=== PATIENT | male | born 1960 | race Caucasian/White ===

== ENCOUNTER 2023-01-23 09:52 | Inpatient (IN) ==
[2023-01-23] MEDS: SODIUM CHLORIDE 0.9% 1,000 ML IV SCH ×2 (10:35→11:30)
[2023-01-23 10:37] LABS: Base Excess VBG -0.2 mEq/L; HCO3 VBG 24 mmol/L; Oxygen Saturation VBG 71.1 %; PCO2 VBG 37 mmHg (38-50); PO2 VBG 41 mmHg; pH VBG 7.42 (7.36-7.41)
[2023-01-23 10:39] LABS: Basophils # (auto) 0.04 K/uL (0.00-0.20); Basophils % (auto) 0.3 %; Eosinophils # (auto) 0.11 K/uL (0.00-0.50); Eosinophils % (auto) 0.7 %; Hematocrit (blood only) 38.5 % (42.0-52.0); Hemoglobin 12.6 g/dl (14.0-18.0); Immature Granulocytes # (auto) 0.07 K/uL (0.01-0.20); Immature Granulocytes % (auto) 0.5 %; Lymphocytes # (auto) 0.92 K/uL (1.20-3.40); Mean Corpuscular Hemoglobin 25.3 pg (25.0-34.0); Mean Corpuscular Hgb Conc 32.7 g/dL (32.0-36.0); Mean Corpuscular Volume 77.2 fL (80.0-100.0); Mean Platelet Volume 8.6 fL (9.4-12.4); Monocytes # (auto) 1.53 K/uL (0.11-0.59); Neutrophils # (auto) 12.67 K/uL (1.40-6.50); Neutrophils % (auto) 82.5 %; Platelet Count 483 K/uL (130-400); RDW Coefficient of Variation 14.8 % (11.5-14.5); RDW Standard Deviation 40.9 fL (36.4-46.3); Red Blood Count 4.99 M/uL (4.70-6.10); White Blood Count 15.34 K/ul (4.8-10.8)
--- NOTE | 2023-01-23 10:52 | Emergency Department Note ---
Impression & Plan Chest pain, Pleural effusion on left, Leukocytosis, Shortness of breath ED Provider Note HISTORY OF PRESENT ILLNESS: Patient is a 62-year-old male presenting with left-sided chest pain and shortness of breath. Patient reports that he has been having intermittent left- sided chest pain and shortness of breath with exertion for the last 3 to 4 weeks. He reports in the last week the symptoms have been more persistent and getting worse. He states he is unable to take more than a few steps before he gets a left-sided burning sensation and feels very short of breath. Reports he is unable to climb any stairs at his facility without becoming significantly winded. Denies any DVT or PE history. Denies any history of cardiac stents. He is not on any anticoagulation. Denies any notable fevers. Denies any cough. 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 Denies any recent sick contact exposures. Denies any abdominal pain, nausea or vomiting. ROS: as above PHYSICAL EXAM: Constitutional: Patient appears in no acute distress. HENT: Head: Normocephalic and atraumatic. Eyes: EOMI, PERRL Mouth/Throat: Mucous membranes moist. Neck: Trachea midline. Neck supple. Cardiovascular: Tachycardic with regular rhythm. No murmurs, rubs or gallops. Intact distal pulses. Pulmonary/Chest: Decreased breath sounds on the left. Abdominal: Abdomen soft, no tenderness, rebound or guarding. Musculoskeletal: No edema, tenderness or deformity noted. Skin: Warm and dry. No rash, erythema, pallor or cyanosis Psychiatric: Appropriate mood and affect for situation. Neurological: Alert and keenly responsive. CN II-XII grossly intact, moving all extremities equally and fully. MDM: - Vitals signs showed tachycardia. - History obtained via patient. Patient presents with left-sided chest pain and shortness of breath. Patient reportedly has been having intermittent chest pain or shortness of breath with exertion for the last 3 to 4 weeks. He states the last week the symptoms have been more persistent getting worse. He is unable to take more than a few steps at a time before he becomes very short of breath. Denies any DVT or PE history. Denies any recent sick contact exposures - Chronic conditions affecting care: HTN; HLD; mast cell disorder - Differential diagnoses include, but are not limited to: Acute coronary syndrome; pulmonary embolism; dissection; tension pneumothorax; esophageal rupture; pneumonia - Order placed for continuous cardiac monitoring. At this time, monitor showed rate of 94 bpm with normal sinus rhythm, per my interpretation. - External medical records reviewed. - EKG reviewed by myself showed normal sinus rhythm. Rate tachycardic at 107 bpm. QTc 472. No acute ischemic changes. - Laboratory workup interpreted by myself showed leukocytosis (WBC 15.34) with left shift; thrombocytosis (plt 483); elevated dimer (2430); elevated lactate (2.3); normal procalcitonin - Patient given 2.5L NS in ER. His sepsis fluid resuscitation based on ideal body weight is 2018 mL. - CXR shows complete opacification of left lung, per my interpretation - CT PE large left pleural effusion with underlying atelectasis. Malignant effusion cannot be excluded. Pulmonary nodules also noted. - Viral biofire negative - Blood cultures obtained - Patient given IV vancomycin and zosyn for antibiotic coverage. - Discussion was had with social worker masters about patient's case and need for admission - Hospitalist consulted for admission - Patient admitted to [facility] for further evaluation and management. ASSESSMENT AND PLAN: Diagnosis: chest pain; shortness of breath; large left pleural effusion; leukocytosis Plan: admit Past Med/Surg History Social History Smoking Status: Former smoker Tobacco Type: Cigarettes Preferred Language: Bahamian Feels Safe at Home: Yes Allergies Allergies Allergy/AdvReac Type Severity Reaction Status Date / Time No Known Allergies Allergy Unverified 01/23/23 13:41 Home Meds Home Medications Medication Instructions Recorded Confirmed alendronate 70 mg tablet 70 mg PO .WEEKLY 01/23/23 01/23/23 ergocalciferol (vitamin D2) 1,250 1,250 mcg PO MOWEFR 01/23/23 01/23/23 mcg (50,000 unit) capsule (Vitamin D2) famotidine 20 mg tablet 20 mg PO DAILY PRN Acid Reflux 01/23/23 01/23/23 hydroxyzine HCl 50 mg tablet 100 mg PO TID 01/23/23 01/23/23 lorazepam 1 mg tablet (Ativan) 1 mg PO DAILY 01/23/23 01/23/23 ondansetron HCl 4 mg tablet 4 mg PO QID PRN Nausea 01/23/23 01/23/23 Results & Data (ED) Vital Signs Vital Signs - 24 hr 01/23/23 09:56 01/23/23 10:11 01/23/23 10:23 Temperature 36.3 C L Temperature Source Temporal Artery Scan Pulse Rate 121 H 110 H Respiratory Rate 18 Blood Pressure 131/86 Blood Pressure Mean 101 Pulse Oximetry 94 94 Oxygen Delivery Method Room Air Room Air Sepsis Recent Fever Within 48 Hours No Sepsis New/Unexplained Change in Mental Status N/A Sepsis Action Taken by Nursing No Action Required 01/23/23 10:23 01/23/23 12:00 01/23/23 12:31 Temperature Temperature Source Pulse Rate 108 H 94 H 94 H Respiratory Rate 22 21 20 Blood Pressure 126/93 124/95 169/95 H Blood Pressure Mean 104 104 119 Pulse Oximetry 93 94 93 Oxygen Delivery Method Room Air Room Air Room Air Sepsis Recent Fever Within 48 Hours Sepsis New/Unexplained Change in Mental Status Sepsis Action Taken by Nursing 01/23/23 13:00 Temperature Temperature Source Pulse Rate 94 H Respiratory Rate 24 Blood Pressure 143/96 H Blood Pressure Mean 111 Pulse Oximetry 95 Oxygen Delivery Method Room Air Sepsis Recent Fever Within 48 Hours Sepsis New/Unexplained Change in Mental Status Sepsis Action Taken by Nursing Laboratory Data 01/23/23 10:14 01/23/23 10:14 Lab Results 01/23/23 01/23/23 01/23/23 Range/Units 10:14 10:22 12:10 WBC 15.34 H (4.8-10.8) K/ul RBC 4.99 (4.70-6.10) M/uL Hgb 12.6 L (14.0-18.0) g/dl Hct 38.5 L (42.0-52.0) % MCV 77.2 L (80.0-100.0) fL MCH 25.3 (25.0-34.0) pg MCHC 32.7 (32.0-36.0) g/dL RDW Std Deviation 40.9 (36.4-46.3) fL RDW Coeff of Macario 14.8 H (11.5-14.5) % Plt Count 483 H (130-400) K/uL MPV 8.6 L (9.4-12.4) fL Immature Gran % (Auto) 0.5 % Neut % (Auto) 82.5 % Lymph % (Auto) 6.0 % Cowley % (Auto) 10.0 % Eos % (Auto) 0.7 % Baso % (Auto) 0.3 % Neut # (Auto) 12.67 H (1.40-6.50) K/uL Lymph # (Auto) 0.92 L (1.20-3.40) K/uL Cowley # (Auto) 1.53 H (0.11-0.59) K/uL Eos # (Auto) 0.11 (0.00-0.50) K/uL Baso # (Auto) 0.04 (0.00-0.20) K/uL Immature Gran # (Auto) 0.07 (0.01-0.20) K/uL D-Dimer 2430 H* (0-500) ug/L FEU VBG pH 7.42 H (7.36-7.41) VBG pCO2 37 L (38-50) mmHg VBG pO2 41 mmHg VBG HCO3 24 mmol/L VBG O2 Saturation 71.1 % VBG Base Excess -0.2 mEq/L Sodium 134 L (136-145) mmol/L Potassium 3.8 (3.5-5.1) mmol/L Chloride 102 (98-107) mmol/L Carbon Dioxide 23 (21-32) mmol/L Anion Gap 9 (3-11) BUN 16 (6-23) mg/dl Creatinine 1.02 (0.6-1.4) mg/dl Est Cr Clr Drug Dosing 76.1 ml/min Est GFR ( Amer) 89.6 ml/min Est GFR (Non-Af Amer) 77.3 ml/min BUN/Creatinine Ratio 15.7 (10-20) Glucose 144 H (70-99(Fasting)) mg/dl Lactate 2.3 H* 1.5 (0.4-2.0) mmol/L Calcium 8.5 L (8.6-10.3) mg/dl Magnesium 1.9 (1.7-2.4) mg/dl Total Bilirubin 0.7 (0.2-1.0) mg/dl Direct Bilirubin 0.2 (0-0.2) mg/dl AST 17 (13-39) U/L ALT 17 (7-52) U/L Alkaline Phosphatase 62 (34-104) U/L Troponin I High Sens 2.5 (0-20) pg/ml Total Protein 7.5 (6.0-8.3) gm/dl Albumin 3.3 L (3.4-5.0) gm/dl Procalcitonin 0.16 (0-0.5) ng/ml Adenovirus (PCR) Not Detected (NotDetected) B. pertussis DNA (PCR) Not Detected (NotDetected) B.parapertussis DNA PCR Not Detected (NotDetected) C. pneumoniae DNA (PCR) Not Detected (NotDetected) Coronavirus OC43 (PCR) Not Detected (NotDetected) Coronavirus HKU1 (PCR) Not Detected (NotDetected) Coronavirus 229E (PCR) Not Detected (NotDetected) SARS-CoV-2 (PCR) Not Detected (NotDetected) Coronavirus NL63 (PCR) Not Detected (NotDetected) Human Metapneumovir PCR Not Detected (NotDetected) Influenza Type A (PCR) Not Detected (NotDetected) Influenza Type B (PCR) Not Detected (NotDetected) M. pneumoniae (PCR) Not Detected (NotDetected) Parainfluenza 1 (PCR) Not Detected (NotDetected) Parainfluenza 2 (PCR) Not Detected (NotDetected) Parainfluenza 3 (PCR) Not Detected (NotDetected) Parainfluenza 4 (PCR) Not Detected (NotDetected) RSV (PCR) Not Detected (NotDetected) Entero/Rhino (PCR) Not Detected (NotDetected) Administered Medications Discontinued Medications Albuterol (Albut/Ipratrop 3mg/0.5mg Neb 3 Ml Vial) 3 ml NEB NOW STA; Protocol Stop: 01/23/23 13:15 Last Admin: 01/23/23 13:20 Dose: 3 ml Documented By: NANCY Sodium Chloride (Nss) 1,000 mls @ 999 mls/hr IV .Q1H1M DOREEN Stop: 01/23/23 12:15 Last Infusion: 01/23/23 12:39 Dose: Infused Documented By: Admin: 01/23/23 11:30 Dose: 999 mls/hr Documented By: Infusion: 01/23/23 11:30 Dose: Infused Documented By: Admin: 01/23/23 10:35 Dose: 999 mls/hr Documented By: ION Vancomycin HCl 2,000 mg/ (Sodium Chloride) 540 mls @ 200 mls/hr IV NOW ONE Stop: 01/23/23 13:58 Last Admin: 01/23/23 12:33 Dose: 200 mls/hr Documented By: ION Piperacillin Sod/Tazobactam Sod (Zosyn) 4.5 gm in 100 mls @ 200 mls/hr IV NOW ONE Stop: 01/23/23 11:46 Last Infusion: 01/23/23 12:34 Dose: Infused Documented By: Admin: 01/23/23 11:30 Dose: 200 mls/hr Documented By: ION Ioversol (Optiray 320 125ml) 114 ml IV ONCE ONE Stop: 01/23/23 12:28 Last Admin: 01/23/23 12:27 Dose: 114 ml Documented By: MARIBETH Imaging Data Radiologist's Impression: Chest X-Ray 01/23/23 10:04 XR chest 1V portable CLINICAL HISTORY: Sepsis TECHNIQUE: Single frontal radiograph of the chest was obtained. Comparison: None available at the time of this dictation. FINDINGS: No lines and tubes are seen. The cardiomediastinal silhouette is obscured. Left hemithorax is opacified. There is likely a large left pleural effusion. IMPRESSION: Left hemithorax opacification may reflect atelectasis, pneumonia, and/or aspiration. Underlying pleural effusion is likely. ACT 112: Negative or not required by law. Electronically signed by: Anand Smith M.D. 01/23/2023 11:16 AM Chest CTA 01/23/23 11:17 CT angio chest PE protocol CLINICAL HISTORY: PE TECHNIQUE: Multidetector row helical CT of the chest was performed with angiographic protocol. Coronal and sagittal reformations were obtained. Coronal and sagittal MIPS were obtained from the axial data set and were submitted for review. Automated dose lowering techniques and/or adjustment according to patient size were utilized for this exam. CT DOSE: 977.81 mGy.cm Comparison: Comparison is made to chest radiograph 01/23/2023 FINDINGS: Lungs and pleura: Large left pleural effusion is seen with associated atelectasis. There is a 3 mm nodule in the right lower lobe (image 69 of series 4). There is a 6 mm nodule in the right lower lobe (image 109). Heart and pericardium: Heart size is normal. No pericardial effusion. Mild rightward mediastinal shift is seen. Vessels: No evidence of pulmonary embolism. Mediastinum and jessica: Multiple enlarged mediastinal lymph nodes measure up to 13 mm. Chest wall and lower neck: Unremarkable. Abdomen: Unremarkable. Bones: Unremarkable. IMPRESSION: 1. Large left pleural effusion is seen with underlying atelectasis. Malignant effusion cannot be excluded. 2. Pulmonary nodules measuring up to 6 mm. Attention on follow-up is recommended. ACT 112: Negative or not required by law. Electronically signed by: Anand Smith M.D. 01/23/2023 12:47 PM Discharge Plan Visit Data Chief Complaint: Shortness of Breath/Dyspnea Stated Complaint: SOB ED Provider: Hiwot Pizano Discharge Problem: Chest pain, Pleural effusion on left, Leukocytosis, Shortness of breath Forms Stand Alone Forms: [facility] Prescriptions Prescriptions: No Action ondansetron HCl 4 mg Tablet 4 mg PO QID PRN (Reason: Nausea) alendronate 70 mg Tablet 70 mg PO .WEEKLY Rx Instructions: Take q friday hydroxyzine HCl 50 mg Tablet 100 mg PO TID famotidine 20 mg Tablet 20 mg PO DAILY PRN (Reason: Acid Reflux) ergocalciferol (vitamin D2) [Vitamin D2] 1,250 mcg (50,000 unit) Capsule 1,250 mcg PO MOWE Rx Instructions: Stop on 02/02/2023 lorazepam [Ativan] 1 mg Tablet 1 mg PO DAILY Referrals Referrals: James ANAND [Primary Care Provider] -
[2023-01-23 10:56] LABS: Albumin Level 3.3 gm/dl (3.4-5.0); BUN Creatinine Ratio 15.7 (10-20); Bilirubin Direct 0.2 mg/dl (0-0.2); Bilirubin,Total 0.7 mg/dl (0.2-1.0); Calcium 8.5 mg/dl (8.6-10.3); Creatinine Clr Calc Pharmacy 76.1 ml/min; Est GFR (African American) 89.6 ml/min; Est GFR (Non-African American) 77.3 ml/min; Magnesium 1.9 mg/dl (1.7-2.4); Potassium 3.8 mmol/L (3.5-5.1); Total Protein 7.5 gm/dl (6.0-8.3)
[2023-01-23 11:03] LABS: Troponin I High Sensitivity 2.5 pg/ml (0-20)
[2023-01-23 11:15] LABS: D Dimer 2430 ug/L FEU (0-500)
[2023-01-23] MEDS ORDERED: VANCOMYCIN HCL 2,000 MG in SODIUM CHLORIDE 0.9% 500 ML IV ONE (11:17)
[2023-01-23] MEDS ORDERED: SODIUM CHLORIDE 0.9% 500 ML IV ONE (11:17)
[2023-01-23] MEDS ORDERED: VANCOMYCIN CONSULT ACTIVE PRN (11:17)
[2023-01-23] MEDS ORDERED: PIPERACILLIN/TAZOBACTAM 4.5 GM/100 ML BAG IV ONE (11:17)
--- NOTE | 2023-01-23 11:17 | XRay Report ---
XR chest 1V portable CLINICAL HISTORY: Sepsis TECHNIQUE: Single frontal radiograph of the chest was obtained. Comparison: None available at the time of this dictation. FINDINGS: No lines and tubes are seen. The cardiomediastinal silhouette is obscured. Left hemithorax is opacifi ed. There is likely a large left pleural effusion. IMPRESSION: Left hemithorax opacification may reflect atelectasis, pneumonia, and/or aspiration. Underlying pleur al effusion is likely. ACT 112: Negative or not required by law. Electronically signed by: Anand Smith M.D. 01/23/2023 11:16 AM
[2023-01-23 11:36] LABS: Adenovirus PCR Not Detected (NotDetected); Bordetella parapertussis PCR Not Detected (NotDetected); Bordetella pertussis PCR Not Detected (NotDetected); Chlamydia pneumoniae PCR Not Detected (NotDetected); Coronavirus 229E PCR Not Detected (NotDetected); Coronavirus CoV-2 (COVID19)PCR Not Detected (NotDetected); Coronavirus HKU1 PCR Not Detected (NotDetected); Coronavirus NL63 PCR Not Detected (NotDetected); Coronavirus OC43PCR Not Detected (NotDetected); Human Metapneumovirus PCR Not Detected (NotDetected); Influenza A PCR Not Detected (NotDetected); Influenza B PCR Not Detected (NotDetected); Mycoplasma pneumoniae PCR Not Detected (NotDetected); Parainfluenza Virus 1 PCR Not Detected (NotDetected); Parainfluenza Virus 2 PCR Not Detected (NotDetected); Parainfluenza Virus 3 PCR Not Detected (NotDetected); Parainfluenza Virus 4 PCR Not Detected (NotDetected); Respiratory Syncytial VirusPCR Not Detected (NotDetected); Rhinovirus/Enterovirus PCR Not Detected (NotDetected)
[2023-01-23] MEDS ORDERED: OPTIRAY 320 125ml IV ONE (12:27)
--- NOTE | 2023-01-23 12:48 | CT Scan Report ---
CT angio chest PE protocol CLINICAL HISTORY: PE TECHNIQUE: Multidetector row helical CT of the chest was performed with angiographic protocol. Carpenter l and sagittal reformations were obtained. Coronal and sagittal MIPS were obtained from the axial gideon a set and were submitted for review. Automated dose lowering techniques and/or adjustment according to patient size were utilized for this exam. CT DOSE: 977.81 mGy.cm Comparison: Comparison is made to chest radiograph 01/23/2023 FINDINGS: Lungs and pleura: Large left pleural effusion is seen with associated atelectasis. There is a 3 mm no dule in the right lower lobe (image 69 of series 4). There is a 6 mm nodule in the right lower lobe ( image 109). Heart and pericardium: Heart size is normal. No pericardial effusion. Mild rightward mediastinal shif t is seen. Vessels: No evidence of pulmonary embolism. Mediastinum and jessica: Multiple enlarged mediastinal lymph nodes measure up to 13 mm. Chest wall and lower neck: Unremarkable. Abdomen: Unremarkable. Bones: Unremarkable. IMPRESSION: 1. Large left pleural effusion is seen with underlying atelectasis. Malignant effusion cannot be exc luded. 2. Pulmonary nodules measuring up to 6 mm. Attention on follow-up is recommended. ACT 112: Negative or not required by law. Electronically signed by: Anand Smith M.D. 01/23/2023 12:47 PM
[2023-01-23] MEDS ORDERED: ALBUT/IPRATROP 3MG/0.5MG NEB 3 ML VIAL NEB STA (13:14)
--- NOTE | 2023-01-23 14:19 | History & Physical Report ---
Date of Service January 23, 2023 Assessment & Plan (1) Pleural effusion on left: Plan: Shortness of breath due to left pleural effusion, suspect exudate Left pleural effusion. N mediastinal lymphadenopathy is noted. 3 mm right lower lobe nodule, 6 mm right lower lobe nodule. Suspect malignant effusion, patient does have a leukocytosis and acutely worsened symptoms and is covered for pneumonia with effusion. Received Zosyn/Vanco in the ER, continued on Zosyn. If MRSA nare is positive will transition to cefepime/vanc Pulmonology consulted for thoracentesis. Additional recommendations based on fluid analysis No history of heart failure exudative effusions (2) Shortness of breath: (3) Leukocytosis: (4) Systemic mastocytosis: Plan: Systemic Mastocysosis - Follows with [facility]. Patient reports he did have a bone marrow biopsy which confirmed systemic mastocytosis - Was placed on Midostaurin x3 weeks last dose was 6 weeks ago do to getting sick, nauseus, feeling poor. Was not recommended for any other immunotherapy. Will attempt to obtain biopsy results from [facility] system No acute change in management at time of admission Plan Pharmacoprophylaxis held pending Christopher noel. Lovenox 40mg SQ daily after. CODE STATUS: DNR/DNI History of Present Illness Primary Care Provider: KIKA Ramirez Grabiel is a 62-year-old male with a past medical history of mast cell disease not on active treatment who presents with left-sided chest pain and shortness of breath with exertion for approximately 1 month which have persisted and gradually worsened. Feels very short of breath after minimal exertion which limits his ability to ambulate. He has no history of cardiac disease, no history of heart failure, no history of DVT/PE. Denies fever/chills/cough Grabiel reports that he is a long-term inmate who had been generally well until about 1 month ago when he had progressive shortness of breath which has worsened and limited his ability to walk or go up stairs. He reports he has a generally dry cough and had not had a cough prior. He does feel feverish intermittently and has had a feeling of night sweats. He does not feel he has a fever currently. Denies chest pressure/chest pain but does feel some discomfort on deep inspiration into his left chest/back. Reports history of systemic mastocytosis and a family history of breast cancer/cervical cancer/bone cancer/"tumor behind the ear "but does not know if this was a CPA angle tumor just that his father and nephew of the same brain tumor. No diarrhea since stopping immunothearpy. No rectal pain. no abdominal pain Decreased appetite, loss of taste due to immunotherapy. Denies vomiting/ No history of bleeding problems Former smoker, in remission 25 years. Prior 1ppd x25 years. No vape, snuff, chew No etoh No heart history, denies CAD/heart failure/fluid retention/angina Pt reports family history of breast cancer, cervical cancer and some type of cancer in her bones, at age 57. Father at age 68 from a 'tumor behind his ear.' NKDA DNR/DNI. Confirmed with patient at bedside. Allergies Allergy/AdvReac Type Severity Reaction Status Date / Time No Known Allergies Allergy Unverified 01/23/23 13:41 Home Medications Medication Instructions Recorded Confirmed Type alendronate 70 mg tablet 70 mg PO .WEEKLY 01/23/23 01/23/23 History ergocalciferol (vitamin D2) 1,250 1,250 mcg PO MOWEFR 01/23/23 01/23/23 History mcg (50,000 unit) capsule (Vitamin D2) famotidine 20 mg tablet 20 mg PO DAILY PRN Acid Reflux 01/23/23 01/23/23 History hydroxyzine HCl 50 mg tablet 100 mg PO TID 01/23/23 01/23/23 History lorazepam 1 mg tablet (Ativan) 1 mg PO DAILY 01/23/23 01/23/23 History ondansetron HCl 4 mg tablet 4 mg PO QID PRN Nausea 01/23/23 01/23/23 History Past Med/Surg History Medical History Systemic mastocytosis Social History Smoking Status: Former smoker Tobacco Type: Cigarettes Preferred Language: Maldivian Feels Safe at Home: Yes Physical Exam Physical Exam: General: A&Ox3. NAD. Cooperative. HEENT: Atraumatic, normocephalic. Pulm: Minimal reading breath sounds in left lung. Right lung clear without wheezing. symmetrical chest rise. No increased work of breathing. No respiratory distress. Cardiac: RRR, -mrg. Radial pulses intact and symmetrical. Abdominal: Nontender, nondistended, soft. BS present. Results & Data Results & Data Vital Signs (Past 12 Hours) Vital Signs Temp Pulse Resp BP Pulse Ox O2 Del Method 01/23/23 13:00 94 H 24 143/96 H 95 Room Air 01/23/23 12:31 94 H 20 169/95 H 93 Room Air 01/23/23 12:00 94 H 21 124/95 94 Room Air 01/23/23 10:23 108 H 22 126/93 93 Room Air 01/23/23 10:23 94 Room Air 01/23/23 10:11 110 H 01/23/23 09:56 36.3 C L 121 H 18 131/86 94 Room Air PG Care Time/CCT Total # of Minutes Spent Total Time Spent with Patient: Total time spent is greater than 50% in coordination of care (as documented) at patient's floor/unit and/or counseling patient: Coding Level of Care Code 93215 INT INP/OBS CARE 3/75MIN Diagnoses Pleural effusion on left J90 Shortness of breath R06.02 Leukocytosis D72.829 Systemic mastocytosis D47.02
--- NOTE | 2023-01-23 14:29 | Electrocardiogram Report ---
Test Reason : Blood Pressure : / mmHG Vent. Rate : 107 BPM Atrial Rate : 107 BPM P-R Int : 148 ms QRS Dur : 084 ms QT Int : 354 ms P-R-T Axes : 049 018 020 degrees QTc Int : 472 ms Sinus tachycardia Otherwise normal ECG No previous ECGs available Confirmed by Grabiel Leung ([id number]) on 01/23/2023 2:29:20 PM Referred By: REFERRED SELF Confirmed By:Grabiel Leung
--- NOTE | 2023-01-23 14:58 | Pulmonary Consultation ---
Date of Consultation January 23, 2023 Assessment & Plan (1) Shortness of breath: (2) Pleural effusion on left: Plan 62-year-old male with a past medical history of mastocytosis and tobacco abuse presenting to the ER due to severe shortness of breath. Patient found to have massive left pleural effusion with possible underlying mass. Consent obtained from the patient for pigtail catheter. Patient was agreeable and procedure was performed. Patient received vancomycin and Zosyn in the ER. Agree with empiric antibiotics at this time. I placed a left pigtail catheter 01/23/2023 and this fluid will be sent for cytology, cultures and cell counts. Malignancy remains very high in the differential. Repeat chest x-rays pending. History of Present Illness Reason for Consultation: Massive left pleural effusion History of Present Illness 62-year-old male with past medical history of mast cell disease who presented to the hospital due to increasing shortness of breath over the past month. He has been very short of breath with exertion. He also endorses an occasional cough. He feels his cough is worse with trying cold weather. Weight has remained s table. Chest CTA completed 01/23/2023 revealed a large left pleural effusion with subcentimeter nodules noted in the right lower lobe. Enlarged mediastinal lymph nodes were noted as well. Patient quit smoking 25 years ago. He smoked roughly 1 pack a day for 25 years. His family history is pertinent for breast cancer, cervical cancer and some form of bone cancer. Allergies Allergy/AdvReac Type Severity Reaction Status Date / Time No Known Allergies Allergy Unverified 01/23/23 13:41 Home Medications Medication Instructions Recorded Confirmed Type alendronate 70 mg tablet 70 mg PO .WEEKLY 01/23/23 01/23/23 History ergocalciferol (vitamin D2) 1,250 1,250 mcg PO MOWEFR 01/23/23 01/23/23 History mcg (50,000 unit) capsule (Vitamin D2) famotidine 20 mg tablet 20 mg PO DAILY PRN Acid Reflux 01/23/23 01/23/23 History hydroxyzine HCl 50 mg tablet 100 mg PO TID 01/23/23 01/23/23 History lorazepam 1 mg tablet (Ativan) 1 mg PO DAILY 01/23/23 01/23/23 History ondansetron HCl 4 mg tablet 4 mg PO QID PRN Nausea 01/23/23 01/23/23 History Patient History Medical History Systemic mastocytosis Social History Smoking Status: Former smoker Tobacco Type: Cigarettes Preferred Language: Lao Feels Safe at Home: Yes Review of Systems Review of Systems: All systems reviewed & are unremarkable except as noted in HPI & below Physical Exam Physical Exam: Constitutional: Patient appears to be of their stated age. Patient is in no apparent distress. Patient is well-developed. Eyes: Pupils are equal round and reactive to light. Conjunctivae are normal. Anicteric sclera. Ears nose, mouth and throat: Mallampati class 2. Normal posterior oropharynx. Uvula is midline. Neck: Trachea is midline. Visual inspection is normal. Respiratory: Diminished lung sounds on the left. Mild crackles. Mildly increased work of breathing. Cardiovascular: Regular rate and rhythm. No murmurs. No edema. Gastrointestinal: Normal bowel sounds, soft, nontender and nondistended. No hepatosplenomegaly noted. Musculoskeletal: No cyanosis. Patient is able to move all extremities. Strength is 5 out of 5 in the upper and lower extremities. Skin: No rashes, warm dry and intact. Neurologic: No obvious focal neurological deficits seen. Psychiatric: Alert and oriented x3 with a euthymic affect. Results & Data Results & Data Vital Signs (Past 12 Hours) Vital Signs Temp Pulse Resp BP Pulse Ox O2 Del Method 01/23/23 14:10 94 H 01/23/23 14:00 94 H 22 150/109 H 94 Room Air 01/23/23 13:00 94 H 24 143/96 H 95 Room Air 01/23/23 12:31 94 H 20 169/95 H 93 Room Air 01/23/23 12:00 94 H 21 124/95 94 Room Air 01/23/23 10:23 108 H 22 126/93 93 Room Air 01/23/23 10:23 94 Room Air 01/23/23 10:11 110 H 01/23/23 09:56 36.3 C L 121 H 18 131/86 94 Room Air PG Care Time/CCT Total # of Minutes Spent Total Time Spent with Patient: Total time spent is greater than 50% in coordination of care (as documented) at patient's floor/unit and/or counseling patient: Coding Level of Care Code 14362 IN/OBS CONSULT LVL 4,60M Diagnoses Shortness of breath R06.02 Pleural effusion on left J90
[2023-01-23] MEDS ORDERED: PLASMA-LYTE A 1,000 ML IV SCH (15:59)
--- NOTE | 2023-01-23 16:01 | Procedure Note ---
Procedure Note Date of Service January 23, 2023 Note Left PIGTAIL CATHETER PLACEMENT NOTE: Procedure: Pigtail Catheter Chest Tube Placement Indication: Massive left pleural effusion Anesthesia: 8 mL lidocaine 1% Written consent was obtained and placed on the chart. Timeout was done prior to the procedure. Prior to procedure, chest x-ray films were reviewed by myself and demonstrated a massive left pleural effusion. A time-out was completed verifying correct patien t, procedure, site, positioning, and implant(s) or special equipment if applicable. Utilizing bedside ultrasound, chest wall was evaluated for location for optimal chest tube placement. Location between the 7 and eighth ribs were marked on the skin using gentle pressure. The left sided chest wall was prepped with chlorhexidine and draped in the typical sterile fashion. 8 mL of 1% Lidocaine without epinephrine was used to anesthetize the skin down to the dorsal surface of the 7 rib. Keri-colored fluid return confirmed entry into the pleural space. Lidocaine was injected into the pleural space for increased anesthetization. Introducer needle on syringe was inserted in perpendicular fashion taking care to ride just above the dorsal surface of the 7 rib. Entry into the pleural space was heralded by 7 return into the syringe while under gentle aspiration. Guide wire was advanced into the pleural space without resistance and the introducer needle was subsequently removed. Scalpel was used to make small incision of the superficial tissue, parallel to the direction of the rib anatomy. Dilator was advanced uneventfully over the guide wire into the pleural space. 14 Upper Sorbian Pigtail Catheter was inserted into the pleural space. Inner introducer and guide wire were removed. Drain was immediately connected to pre-prepared PASCUAL pleur-evac system. Pigtail was sutured securely in place and sterile dressing was applied. Chest tube was placed to waterseal.. Patient tolerated procedure well. Blood Loss: Minimal Complications: None Postprocedure chest x-ray ordered and is pending. Coding CPT Codes Pulmonary/Thoracic - Pulmonary and Thoracic: 42349 Tube thoracostomy ([id number]) Pulmonary/Thoracic - Pulmonary and Thoracic: 51388 US, Chest, real time with imaging documentation ([id number]) [facility] [place] (Charges) Pulmonary/Thoracic Procedure 1: Pulmonary and Thoracic: 60758 Tube thoracostomy Procedure 2: Pulmonary and Thoracic: 93768 US, Chest, real time with imaging documen tation
[2023-01-23 16:18] LABS: INR 1.2 (0.9-1.1); Prothrombin Time 12.5 Seconds (9.0-12.0)
--- NOTE | 2023-01-23 16:25 | XRay Report ---
XR chest 1V portable CLINICAL HISTORY: S/P Thoracentesis TECHNIQUE: Single frontal radiograph of the chest was obtained. Comparison: Comparison is made to chest radiograph 01/23/2023 FINDINGS: No lines and tubes are seen. There is a lesser degree of rightward mediastinal shift. Branching gas d ensities are seen compatible with bronchial gas. Large left pleural effusion with no evidence of pneu mothorax. IMPRESSION: Large left pleural effusion, somewhat decreased from prior exam with a lesser degree of mass effect. Underlying atelectasis is seen. ACT 112: Negative or not required by law. Electronically signed by: Anand Smith M.D. 01/23/2023 4:23 PM
[2023-01-23] MEDS ORDERED: ALBUMIN 25% 12.5 GM/50 ML VIAL IV ONE (16:41)
[2023-01-23 16:50] LABS: Total Protein Pleural Fluid 4.5 gm/dl
[2023-01-23 17:02] LABS: Appearance Pleural Fluid Cloudy; Color Pleural Fluid Yellow; RBC Pleural Fluid Auto 2000 /uL; Source Pleural Fluid Left Lung; WBC Pleural Fluid Auto 2452 /uL
[2023-01-23 17:03] LABS: Lymphocytes, Fluid 22 %; Mono,Macrophage,Mesothelial 49 %; Neutrophils, Fluid 29 %
[2023-01-23] MEDS: PIPERACILLIN/TAZOBACTAM 4.5 GM in DEXTROSE 5% MINI-B 100 ML IV SCH (17:05)
[2023-01-23] MEDS ORDERED: FUROSEMIDE INJ 20 MG/2 ML VIAL IV ONE (17:21)
--- NOTE | 2023-01-23 19:00 | Pharmacy Report ---
Pharmacy PK ABX Note - Date of Service January 23, 2023 - Assessment and Plan Assessment 62 year old M receiving VANC/ZOSYN for pulmonary indication. Day # 1 of antimicrobial therapy. Plan Vancomycin * Loading dose: 2000mg (~25mg/kg) IV x 1 * Maintenance dose: 1000mg IV every 12 hours * Regimen is predicted to achieve target AUC/JONO of 400-600 mg/L.hr * Will reassess need for a level 01/24/23. Pharmacy will continue to follow and will adjust dose/frequency as necessary. Thank you. Pharmacy has transitioned to AUC monitoring for vancomycin. AUC/JONO is the preferred PK/PD target and is associated with decreased risk of nephrotoxicity compared to traditional trough targets.
[2023-01-23 19:25] LABS: Appearance Urine Clear (Clear); Bacteria Urine Automated Negative (Negative); Bilirubin Urine Negative (Negative); Blood Urine Negative (Negative); Color Urine Yellow; Glucose Urine UA Negative (Negative); Ketones Urine 1+ (Negative); Leukocyte Esterase Urine Negative (Negative); Nitrite Urine Negative (Negative); Protein Urine Trace (Negative); RBC Urine Automated 0-4 /hpf (0-4); Specific Gravity Urine > 1.045 (1.000-1.030); Urobilinogen Urine Negative (Negative); pH Urine 6.5 (4.5-7.5)
[2023-01-24] MEDS: PIPERACILLIN/TAZOBACTAM 4.5 GM in DEXTROSE 5% MINI-B 100 ML IV SCH ×3 (00:28→18:21)
[2023-01-24] MEDS: VANCOMYCIN HCL 1,000 MG in SODIUM CHLORIDE 0.9% 250 ML IV SCH ×2 (00:29→13:58)
[2023-01-24] MEDS: ALBUT/IPRATROP 3MG/0.5MG NEB 3 ML VIAL NEB PRN ×3 (00:53→15:20)
[2023-01-24] MEDS: ACETAMINOPHEN 325 MG TAB PO PRN ×3 (04:35→18:24)
[2023-01-24 06:12] LABS: Basophils # (auto) 0.04 K/uL (0.00-0.20); Basophils % (auto) 0.3 %; Eosinophils # (auto) 0.13 K/uL (0.00-0.50); Eosinophils % (auto) 0.8 %; Hematocrit (blood only) 33.4 % (42.0-52.0); Hemoglobin 11.3 g/dl (14.0-18.0); Immature Granulocytes # (auto) 0.07 K/uL (0.01-0.20); Immature Granulocytes % (auto) 0.4 %; Lymphocytes # (auto) 1.04 K/uL (1.20-3.40); Lymphocytes % (auto) 6.6 %; Mean Corpuscular Hemoglobin 25.7 pg (25.0-34.0); Mean Corpuscular Hgb Conc 33.8 g/dL (32.0-36.0); Mean Corpuscular Volume 76.1 fL (80.0-100.0); Mean Platelet Volume 8.4 fL (9.4-12.4); Monocytes % (auto) 10.1 %; Neutrophils # (auto) 12.91 K/uL (1.40-6.50); Neutrophils % (auto) 81.8 %; Platelet Count 424 K/uL (130-400); RDW Coefficient of Variation 14.6 % (11.5-14.5); RDW Standard Deviation 39.8 fL (36.4-46.3); Red Blood Count 4.39 M/uL (4.70-6.10); White Blood Count 15.79 K/ul (4.8-10.8)
[2023-01-24 06:34] LABS: Calcium 7.6 mg/dl (8.6-10.3); Creatinine Clr Calc Pharmacy 111.1 ml/min; Est GFR (African American) 116.3 ml/min; Est GFR (Non-African American) 100.3 ml/min; Potassium 3.3 mmol/L (3.5-5.1)
[2023-01-24 06:37] LABS: INR 1.2 (0.9-1.1); Partial Thromboplastin Ratio 1.1; Partial Thromboplastin Time 31 Seconds (21-31)
--- NOTE | 2023-01-24 07:39 | XRay Report ---
XR chest 1V portable HISTORY: 62 years-old Male Chest tube follow-up study in a patient with left pleural effusion COMPARISON: 01/23/2023 TECHNIQUE: AP view of the chest FINDINGS: Unchanged sclerotic appearance of the proximal humeri. Bones appear grossly intact. Cardiac silhouett e is enlarged. Unchanged right lung interstitial coarsening. Hilar adenopathy better seen on the comp arison chest CT. Mildly decreased size of the left pleural effusion with pleural drainage catheter po sitioned over the lateral left lung base. No pneumothorax identified. Left lung volume loss with cons olidation again noted however there is mild improved aeration of the left lung. IMPRESSION: 1. Left-sided pleural drainage catheter in place. Mildly improved aeration of the left lung with decr eased size of the large left pleural effusion. 2. No pneumothorax identified. ACT 112: Negative or not required by law. The above report was generated using voice recognition software. It may contain grammatical, syntax o r spelling errors. Electronically signed by: Tmo Rogers M.D. 01/24/2023 7:38 AM
[2023-01-24 09:27] LABS: A calco-baum cmplx NotReported Not Detected (NotDetected); Bact fragilis Not Reported Not Detected (NotDetected); Blood Culture Id Panel See PCR Comment (NotDetected); C auris Not Reported Not Detected (NotDetected); Calbicans Not Reported Not Detected (NotDetected); Candida glabrata Not Reported Not Detected (NotDetected); Candida krusei Not Reported Not Detected (NotDetected); Cneoformans/gatti Not Reported Not Detected (NotDetected); Cparapsilosis Not Reported Not Detected (NotDetected); E cloacae compx Not Reported Not Detected (NotDetected); Efaecalis Not Reported Not Detected (NotDetected); Efaecium Not Reported Not Detected (NotDetected); Enterobacterales Not Reported Not Detected (NotDetected); Escherichia coli Not Reported Not Detected (NotDetected); H influenzae Not Reported Not Detected (NotDetected); K aerogenes Not Reported Not Detected (NotDetected); Koxytoca Not Reported Not Detected (NotDetected); Kpneumoniae grp Not Reported Not Detected (NotDetected); Lmonocyt Not Reported Not Detected (NotDetected); N meningitidis Not Reported Not Detected (NotDetected); P aeruginosa Not Reported Not Detected (NotDetected); Proteus spp Not Reported Not Detected (NotDetected); Salmonella spp Not Reported Not Detected (NotDetected); Smarcescens Not Reported Not Detected (NotDetected); Staph lugdunensis Not Reported Not Detected (NotDetected); Staph spp. Not Reported DETECTED (NotDetected); Staphaureus Not Reported Not Detected (NotDetected); Staphepi Not Reported DETECTED (NotDetected); Stenmaltophilia Not Reported Not Detected (NotDetected); Strep agal(GrpB) Not Reported Not Detected (NotDetected); Strep pneum Not Reported Not Detected (NotDetected); Strep pyog (GrpA) Not Reported Not Detected (NotDetected); Strep spp Not Reported Not Detected (NotDetected)
[2023-01-24 09:34] LABS: Staphylococcus epidermidis DETECTED (NotDetected); Staphylococcus spp. DETECTED (NotDetected)
[2023-01-24 09:37] LABS: mecAC Resistant Gene DETECTED (NotDetected)
--- NOTE | 2023-01-24 11:45 | Pulmonology Progress Note ---
Date of Service January 24, 2023 Assessment & Plan (1) Shortness of breath: (2) Pleural effusion on left: Plan 62-year-old male with a past medical history of mastocytosis and tobacco abuse presenting to the ER due to severe shortness of breath. Patient found to have massive left pleural effusion with possible underlying mass. The left pigtail catheter continues to drain margarito-colored fluid. Cytology was negative for malignancy. Pleural fluid appears to be an exudate based on lights criteria. Cultures are pending. I am still highly suspicious of malignancy. Will repeat a CT chest once the effusion has resolved on x-ray to evaluate for underlying mass. Will place the chest tube to suction at -10 cm of water. Pain control and antibiotics per primary team. Continue daily chest x-ray. Admission and Anticipated Discharge Date Admission Date: January 23, 2023 Subjective Patient seen and examined. He endorses his breathing has improved. He had approximately 2 L of fluid out overnight from the chest tube. He is saturating well on room air. He denies any fevers, chills or night sweats. Review of Systems Review of Systems: All systems reviewed & are unremarkable except as noted in HPI & below Physical Exam Physical Exam: Constitutional: Patient appears to be of their stated age. Patient is in no apparent distress. Patient is well-developed. Eyes: Pupils are equal round and reactive to light. Conjunctivae are normal. Anicteric sclera. Ears nose, mouth and throat: Mallampati class 2. Normal posterior oropharynx. Uvula is midline. Neck: Trachea is midline. Visual inspection is normal. Respiratory: Diminished lung sounds on the left. Mild crackles. Mildly increased work of breathing. Cardiovascular: Regular rate and rhythm. No murmurs. No edema. Gastrointestinal: Normal bowel sounds, soft, nontender and nondistended. No hepatosplenomegaly noted. Musculoskeletal: No cyanosis. Patient is able to move all extremities. Strength is 5 out of 5 in the upper and lower extremities. Skin: No rashes, warm dry and intact. Neurologic: No obvious focal neurological deficits seen. Psychiatric: Alert and oriented x3 with a euthymic affect. Results & Data Results & Data Vital Signs (Past 12 Hours) Vital Signs Temp Pulse Pulse Resp BP Pulse Ox O2 Del Method 01/24/23 08:02 36.5 C 90 18 114/77 98 Room Air 12/08/23 07:39 87 18 96 Nasal Cannula 12/08/23 07:19 91 H 01/24/23 07:11 Nasal Cannula 01/24/23 03:00 36.7 C 99 H 16 130/77 94 Nasal Cannula 01/24/23 00:55 97 H 18 97 Nasal Cannula 01/24/23 00:38 Nasal Cannula O2 Flow Rate 01/24/23 08:02 01/24/23 07:39 2 01/24/23 07:19 01/24/23 07:11 2 01/24/23 03:00 01/24/23 00:55 2 01/24/23 00:38 2 PG Care Time/CCT Total # of Minutes Spent Total Time Spent with Patient: Total time spent is greater than 50% in coordination of care (as documented) at patient's floor/unit and/or counseling patient: Coding Level of Care Code 00918 SUB INP/OBS CARE 3/50MIN Diagnoses Shortness of breath R06.02 Pleural effusion on left J90
--- NOTE | 2023-01-24 19:52 | Hospitalist Progress Note ---
Date of Service January 24, 2023 Assessment & Plan (1) Pleural effusion on left: Plan: Large exudative left pleural effusion possibly malignant, status post chest tube placement, feeling better, currently patient not hypoxic, patient is on room air Left pleural effusion. N mediastinal lymphadenopathy is noted. 3 mm right lower lobe nodule, 6 mm right lower lobe nodule. Suspect malignant effusion, most likely the patient leukocytosis due to malignancy, stopped IV antibiotic, CAT scan once effusion has resolved for underlying mas No history of heart failure exudative effusions (2) Systemic mastocytosis: Plan: Systemic Mastocysosis - Follows with [facility]. Patient reports he did have a bone marrow biopsy which confirmed systemic mastocytosis - Was placed on Midostaurin x3 weeks last dose was 6 weeks ago do to getting sick, nauseus, feeling poor. Was not recommended for any other immunotherapy. Will attempt to obtain biopsy results from [facility] system No acute change in management at time of admission Plan Pharmacoprophylaxis held pending Christopher noel. Lovenox 40mg SQ daily after. CODE STATUS: DNR/DNI Admission and Anticipated Discharge Date Admission Date: January 23, 2023 Subjective his breathing has improved. He had approximately 2 L of fluid out overnight from the chest tube, currently on room air Results & Data Results & Data Vital Signs (Past 12 Hours) Vital Signs Temp Pulse Pulse Resp BP Pulse Ox Pulse Ox 01/24/23 16:27 01/24/23 16:00 98 H 01/24/23 15:59 93 01/24/23 15:41 36.4 C L 93 H 18 111/69 93 01/24/23 15:20 93 H 18 93 01/24/23 12:19 36.5 C 94 H 18 123/81 92 01/24/23 08:02 36.5 C 90 18 114/77 98 O2 Del Method 01/24/23 16:27 Room Air 01/24/23 16:00 01/24/23 15:59 01/24/23 15:41 Room Air 01/24/23 15:20 Room Air 01/24/23 12:19 Room Air 01/24/23 08:02 Room Air PG Care Time/CCT Total # of Minutes Spent Total Time Spent with Patient: Total time spent is greater than 50% in coordination of care (as documented) at patient's floor/unit and/or counseling patient: Coding Level of Care Code 01574 SUB INP/OBS CARE MIN Diagnoses Pleural effusion on left J90 Systemic mastocytosis D47.02
[2023-01-25] MEDS: ACETAMINOPHEN 325 MG TAB PO PRN ×3 (04:00→20:52)
[2023-01-25 06:43] LABS: Basophils # (auto) 0.03 K/uL (0.00-0.20); Basophils % (auto) 0.2 %; Eosinophils # (auto) 0.41 K/uL (0.00-0.50); Eosinophils % (auto) 2.8 %; Hematocrit (blood only) 34.2 % (42.0-52.0); Hemoglobin 11.3 g/dl (14.0-18.0); Immature Granulocytes # (auto) 0.06 K/uL (0.01-0.20); Immature Granulocytes % (auto) 0.4 %; Lymphocytes % (auto) 8.9 %; Mean Corpuscular Hemoglobin 25.1 pg (25.0-34.0); Mean Platelet Volume 8.6 fL (9.4-12.4); Monocytes # (auto) 1.25 K/uL (0.11-0.59); Monocytes % (auto) 8.5 %; Neutrophils % (auto) 79.2 %; Platelet Count 443 K/uL (130-400); RDW Coefficient of Variation 14.6 % (11.5-14.5); RDW Standard Deviation 39.8 fL (36.4-46.3); White Blood Count 14.65 K/ul (4.8-10.8)
[2023-01-25 06:58] LABS: Calcium 7.7 mg/dl (8.6-10.3); Creatinine Clr Calc Pharmacy 102.8 ml/min; Est GFR (African American) 112.4 ml/min; Est GFR (Non-African American) 96.9 ml/min; Potassium 3.4 mmol/L (3.5-5.1)
--- NOTE | 2023-01-25 08:20 | XRay Report ---
XR chest 1V portable HISTORY: Chest tube follow-up. Left pleural effusion. COMPARISON: Chest 01/24/2023. FINDINGS: Unchanged sclerosis within the proximal humeri. Cardiac silhouette is enlarged. Unchanged r ight lung interstitial coarsening. Hilar adenopathy better seen on the comparison chest CT. Mildly de creased size of the left pleural effusion with pleural drainage catheter positioned over the lateral left lung base. No pneumothorax identified. Left lung volume loss with consolidation again noted chance benson there is mild improved aeration of the left lung. IMPRESSION: 1. Left-sided pleural drainage catheter in place. Mildly improved aeration of the left lung with decr eased size of the large left pleural effusion. 2. No pneumothorax identified. ACT 112: Negative or not required by law. Electronically signed by: Neo Robledo M.D. 01/25/2023 8:17 AM
[2023-01-25] MEDS ORDERED: ALBUT/IPRATROP 3MG/0.5MG NEB 3 ML VIAL NEB STA (11:17)
--- NOTE | 2023-01-25 11:19 | Procedure Note ---
Procedure Note Date of Service January 25, 2023 Note The dressing was taken down. Sutures were removed. Chest tube was removed upon exhalation. Occlusive dressing placed over the incision site. Patient tolerated procedure well. Pigtail catheter appeared to be intact. Of note, I did send a second sample of pleural fluid (approximately 50 mL) to the lab for cytology as the initial sample may have been a false negative. Coding CPT Codes Pulmonary/Thoracic - Pulmonary and Thoracic: 70340 Remove lung catheter ([id number]) [facility] [place] Procedure Codes (Charges) Pulmonary/Thoracic Procedure 1: Pulmonary and Thoracic: 22237 Remove lung catheter
[2023-01-25] MEDS: ALBUT/IPRATROP 3MG/0.5MG NEB 3 ML VIAL NEB PRN (11:20)
[2023-01-25] MEDS ORDERED: FAMOTIDINE 20 MG TAB PO PRN (11:43)
[2023-01-25] MEDS ORDERED: ONDANSETRON 4 MG OD TAB PO PRN (11:53)
--- NOTE | 2023-01-25 12:28 | CT Scan Report ---
CT chest diagnostic wo con CT DOSE: 468.3 mGy.cm HISTORY: chest tube removal...underlying mass? TECHNIQUE: Multiaxial CT images of the chest were performed without contrast. A dose lowering techni que was utilized adhering to the principles of ALARA. COMPARISON: Chest CT 01/23/2023. FINDINGS: There are few punctate foci of gas within the left basilar pleural space likely due to the prior pleural catheter. There is a small left pleural effusion remaining. The left lower lobe bronchi are completely opacified. There is heterogeneous consolidation seen throughout the left lower lobe. This is suboptimally assessed on this noncontrast study but is concerning for an infiltrative mass. P artial opacification of the distal left mainstem bronchus and lingular bronchus which could be due to an infiltrative mass. In addition, there is abnormal soft tissue encasing the left mainstem bronchus which measures up to 2.6 cm in thickness. This is considered pathologic and could represent a primar y bronchogenic malignancy. This appears to be contiguous with the heterogeneous left lower lobe. Ther e multiple additional enlarged mediastinal lymph nodes. Small pericardial effusion is noted. Normal e sophagus. The heart is normal in size. Limited views of the upper abdomen demonstrate a few subcentim eter hypodense lesions within the left hepatic lobe. These are incompletely characters on this noncon trast study but favor cysts. The visualized adrenal glands and spleen are unremarkable. There is a si ngle enlarged gastrohepatic lymph node measuring 15 x 10 mm. There is also mild left supraclavicular lymphadenopathy measuring up to 17 x 12 mm. A dominant enlarged right paratracheal lymph node measure s 2.3 x 1.6 cm. No suspicious lytic or blastic osseous lesions. A 3 mm subpleural nodule within the r ight lower lobe on image 143. IMPRESSION: 1. A few punctate foci of gas within the left basilar pleural space likely secondary to the prior ple ural catheter. 2. A small left pleural effusion persists. 3. The left lower lobe bronchi are completely opacified. There is heterogeneous consolidation seen t hroughout the left lower lobe. This is suboptimally assessed on this noncontrast study but is concern ing for an infiltrative mass. 4. In addition, there is mediastinal lymphadenopathy with abnormal soft tissue encasing the left main stem bronchus and likely invading into the distal left mainstem bronchus and lingular bronchus. This is contiguous with the heterogeneous left lower lobe and is therefore highly suspicious for a primary bronchogenic malignancy. 5. There is left supraclavicular and gastrohepatic lymphadenopathy. ACT 112: Negative or not required by law. Electronically signed by: Neo Robledo M.D. 01/25/2023 12:26 PM
--- NOTE | 2023-01-25 12:56 | Pulmonology Progress Note ---
Date of Service January 25, 2023 Assessment & Plan (1) Shortness of breath: (2) Pleural effusion on left: (3) Mass of left lung: Plan 62-year-old male with a past medical history of mastocytosis and tobacco abuse presenting to the ER due to severe shortness of breath. Patient found to have massive left pleural effusion with possible underlying mass. There has been minimal drainage from the left pleural catheter at this time and I remove the catheter at bedside. He has had approximately 2.5 L of fluid removed. I sent a second sample of pleural fluid to the lab for cytologic evaluation as there are cases upwards of 60 percent of the time the second specimen can yield the diagnostic results indicative of malignancy malignancy in exudative effusions. I did order a CT scan of the chest after the effusion was drained which reveals minimal left pleural effusion and a large infiltrative mass with compression of the bronchus. Patient will need tissue sampling of this mass and EBUS which can be performed early next week. I suspect the patient likely has primary lung cancer. Oncology consult placed as well. Admission and Anticipated Discharge Date Admission Date: January 23, 2023 Subjective Patient seen and examined. He still has shortness of breath, but improved compared to admission. He denies any fevers, chills or night sweats. Review of Systems Review of Systems: All systems reviewed & are unremarkable except as noted in HPI & below Physical Exam Physical Exam: Constitutional: Patient appears to be of their stated age. Patient is in no apparent distress. Patient is well-developed. Eyes: Pupils are equal round and reactive to light. Conjunctivae are normal. Anicteric sclera. Ears nose, mouth and throat: Mallampati class 2. Normal posterior oropharynx. Uvula is midline. Neck: Trachea is midline. Visual inspection is normal. Respiratory: Diminished lung sounds on the left. Mild crackles. Mildly increased work of breathing. Cardiovascular: Regular rate and rhythm. No murmurs. No edema. Gastrointestinal: Normal bowel sounds, soft, nontender and nondistended. No hepatosplenomegaly noted. Musculoskeletal: No cyanosis. Patient is able to move all extremities. Strength is 5 out of 5 in the upper and lower extremities. Skin: No rashes, warm dry and intact. Neurologic: No obvious focal neurological deficits seen. Psychiatric: Alert and oriented x3 with a euthymic affect. Results & Data Results & Data Vital Signs (Past 12 Hours) Vital Signs Temp Pulse Pulse Resp BP Pulse Ox O2 Del Method 01/25/23 11:20 91 H 18 94 Nasal Cannula 01/25/23 08:00 36.8 C 91 H 20 116/77 95 Nasal Cannula 01/25/23 07:00 Nasal Cannula 01/25/23 07:00 89 01/25/23 02:35 36.3 C L 94 H 18 118/84 94 Nasal Cannula O2 Flow Rate 01/25/23 11:20 2 01/25/23 08:00 3 01/25/23 07:00 2 01/25/23 07:00 01/25/23 02:35 PG Care Time/CCT Total # of Minutes Spent Total Time Spent with Patient: Total time spent is greater than 50% in coordination of care (as documented) at patient's floor/unit and/or counseling patient: Coding Level of Care Code 80729 SUB INP/OBS CARE 3/50MIN Diagnoses Shortness of breath R06.02 Pleural effusion on left J90 Mass of left lung R91.8
[2023-01-25 13:46] LABS: Appearance Pleural Fluid Slightly Hazy; Color Pleural Fluid Pale Yellow; Lymphocytes, Fluid 49 %; Mono,Macrophage,Mesothelial 6 %; Neutrophils, Fluid 45 %; RBC Pleural Fluid Auto 4000 /uL; Source Pleural Fluid Left Lung; WBC Pleural Fluid Auto 1614 /uL
--- NOTE | 2023-01-25 14:09 | Oncology Consultation ---
Date of Consultation January 25, 2023 Assessment & Plan (1) Mass of left lung: At this point my recommendation would be to obtain a biopsy from this left lung mass. This could be obtained from the supraclavicular lymph node transcutaneously. Otherwise the other option would be transthoracic or endobronchial biopsy. However I will leave that with my pulmonary colleagues. Once I have a diagnosis from this mass of the left lung I will do further treatment recommendations. At this point the highest differential diagnosis metastatic lung cancer. The patient asked me a question whether this could be related to the mastocytosis, it is highly unlikely. However we will wait for the biopsy proven diagnosis. Once I have those results I will have further treatment recommendations. Plan Thank you for this interesting oncological consult. Medical oncology will continue to follow the patient and make appropriate recommendations. 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 He has a history of systemic mastocytosis, however he has not been on any kind of treatment. He gets H1 blockers for systemic mastocytosis whenever he has an exacerbation. Recently was admitted to the hospital with worsening shortness of breath. CT angiogram of the lungs was done on 01/23/2023 which revealed large left pleural effusions, multiple pulmonary nodules, underlying atelectasis. Subsequently he underwent thoracentesis and the initial specimen from that thoracentesis fluid did not reveal evidence of any malignant cells. Postthoracentesis he underwent another CT scan performed on 01/25/2023 which revealed mediastinal lymphadenopathy and a left lung mass. Medical oncology has been consulted to assist in management of this patient with possible metastatic lung cancer. The patient continues to have shortness of breath. Reports occasional cough and sputum production. Reports no fever chills or night sweats. Reports no hemoptysis. Allergies Allergy/AdvReac Type Severity Reaction Status Date / Time No Known Allergies Allergy Unverified 01/23/23 13:41 Home Medications Medication Instructions Recorded Confirmed Type alendronate 70 mg tablet 70 mg PO .WEEKLY 01/23/23 01/23/23 History ergocalciferol (vitamin D2) 1,250 1,250 mcg PO MOWEFR 01/23/23 01/23/23 History mcg (50,000 unit) capsule (Vitamin D2) famotidine 20 mg tablet 20 mg PO DAILY PRN Acid Reflux 01/23/23 01/23/23 History hydroxyzine HCl 50 mg tablet 100 mg PO TID 01/23/23 01/23/23 History lorazepam 1 mg tablet (Ativan) 1 mg PO DAILY 01/23/23 01/23/23 History ondansetron HCl 4 mg tablet 4 mg PO QID PRN Nausea 01/23/23 01/23/23 History Patient History Medical History (Updated 01/25/23 @ 12:56 by Mc May MD) Mass of left lung Systemic mastocytosis Social History Smoking Status: Former smoker Tobacco Type: Cigarettes Hx Alcohol Use: No Hx Substance Use: No Preferred Language: Wolof [employer] Analyst Required: No Beliefs That Will Affect Care: None Current Living Situation: Other Current Living Situation Comment: inmate Feels Safe at Home: Yes Results & Data Vital Signs (Past 12 Hours) Vital Signs Temp Pulse Pulse Resp BP Pulse Ox O2 Del Method 01/25/23 11:20 91 H 18 94 Nasal Cannula 01/25/23 08:00 36.8 C 91 H 20 116/77 95 Nasal Cannula 01/25/23 07:00 Nasal Cannula 01/25/23 07:00 89 01/25/23 02:35 36.3 C L 94 H 18 118/84 94 Nasal Cannula O2 Flow Rate 01/25/23 11:20 2 01/25/23 08:00 3 01/25/23 07:00 2 01/25/23 07:00 01/25/23 02:35
--- NOTE | 2023-01-25 15:47 | XCELERA ---
[id number] \\[id number]
--- NOTE | 2023-01-25 17:12 | Hospitalist Progress Note ---
Date of Service January 25, 2023 Assessment & Plan (1) Pleural effusion on left: Plan: Large exudative left pleural effusion possibly malignant, status post chest tube placement, feeling better, currently patient not hypoxic, patient is on room air Left pleural effusion. N mediastinal lymphadenopathy is noted. 3 mm right lower lobe nodule, 6 mm right lower lobe nodule. 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 Patient reports he did have a bone marrow biopsy which confirmed systemic mastocytosis - Was placed on Midostaurin x3 weeks last dose was 6 weeks ago do to getting sick, nauseus, feeling poor. Was not recommended for any other immunotherapy. No acute change in management at time of admission Plan Pharmacoprophylaxis held pending Christopher noel. Lovenox 40mg SQ daily after. CODE STATUS: DNR/DNI Admission and Anticipated Discharge Date Admission Date: January 23, 2023 Subjective Follow-up CAT scan today showed left lower lobe infiltrative mass with mediastinal lymphadenopathy with abnormal soft tissue encasing the left mainstem bronchus likely invading into the distal left main ostium bronchus and lingular lobe. This is contagious with the heterogeneous left lower lobe and is therefore highly suspicious for primary bronchogenic malignancy Physical Exam Physical Exam: Constitutional: Patient appears to be of their stated age. Patient is in no apparent distress. Patient is well-developed. Eyes: Pupils are equal round and reactive to light. Conjunctivae are normal. Anicteric sclera. Ears nose, mouth and throat: Mallampati class 2. Normal posterior oropharynx. Uvula is midline. Neck: Trachea is midline. Visual inspection is normal. Respiratory: Diminished lung sounds on the left. Mild crackles. Mildly increased work of breathing. Cardiovascular: Regular rate and rhythm. No murmurs. No edema. Gastrointestinal: Normal bowel sounds, soft, nontender and nondistended. No hepatosplenomegaly noted. Musculoskeletal: No cyanosis. Patient is able to move all extremities. Strength is 5 out of 5 in the upper and lower extremities. Skin: No rashes, warm dry and intact. Neurologic: No obvious focal neurological deficits seen. Psychiatric: Alert and oriented x3 with a euthymic affect. Results & Data Results & Data Vital Signs (Past 12 Hours) Vital Signs Temp Pulse Pulse Resp BP Pulse Ox O2 Del Method 01/25/23 15:45 36.7 C 97 H 18 117/76 93 Nasal Cannula 01/25/23 11:20 91 H 18 94 Nasal Cannula 01/25/23 08:00 36.8 C 91 H 20 116/77 95 Nasal Cannula 01/25/23 07:00 Nasal Cannula 01/25/23 07:00 89 O2 Flow Rate 01/25/23 15:45 2 01/25/23 11:20 2 01/25/23 08:00 3 01/25/23 07:00 2 01/25/23 07:00 PG Care Time/CCT Total # of Minutes Spent Total Time Spent with Patient: Total time spent is greater than 50% in coordination of care (as documented) at patient's floor/unit and/or counseling patient: Coding Level of Care Code 26301 SUB INP/OBS CARE 3/50MIN Diagnoses Pleural effusion on left J90 Mass of left lung R91.8 Systemic mastocytosis D47.02
[2023-01-25] MEDS: hydrOXYzine HCl 25 MG TAB PO SCH (20:52)
--- NOTE | 2023-01-26 07:30 | XRay Report ---
XR chest 1V portable HISTORY: 62 years-old Male Chest tube interval removal of the left-sided chest tube COMPARISON: Chest CT 01/25/2023 TECHNIQUE: AP view of the chest FINDINGS: Cardiac silhouette is enlarged. Interval removal of the left-sided chest tube. The tiny left-sided pn eumothorax seen on comparison chest CT is not identified by radiography. Persistent left lung volume loss with left midlung and left basilar consolidation. Unchanged left pleural effusion. The right kevan g is clear. Degenerative changes of the shoulders and spine. IMPRESSION: 1. No definite pneumothorax identified by radiography following removal of the left-sided chest tube. 2. Persistent left lung volume loss with consolidation and left pleural effusion. 3. Cardiomegaly. ACT 112: Negative or not required by law. The above report was generated using voice recognition software. It may contain grammatical, syntax o r spelling errors. Electronically signed by: Tom Rogers M.D. 01/26/2023 7:29 AM
[2023-01-26 07:32] LABS: Basophils # (auto) 0.03 K/uL (0.00-0.20); Basophils % (auto) 0.2 %; Eosinophils # (auto) 0.49 K/uL (0.00-0.50); Eosinophils % (auto) 3.7 %; Hemoglobin 12.1 g/dl (14.0-18.0); Immature Granulocytes # (auto) 0.06 K/uL (0.01-0.20); Immature Granulocytes % (auto) 0.5 %; Lymphocytes # (auto) 1.32 K/uL (1.20-3.40); Mean Corpuscular Hemoglobin 25.6 pg (25.0-34.0); Mean Corpuscular Hgb Conc 33.6 g/dL (32.0-36.0); Mean Corpuscular Volume 76.1 fL (80.0-100.0); Mean Platelet Volume 8.5 fL (9.4-12.4); Monocytes # (auto) 1.07 K/uL (0.11-0.59); Monocytes % (auto) 8.1 %; Neutrophils # (auto) 10.17 K/uL (1.40-6.50); Neutrophils % (auto) 77.5 %; Platelet Count 486 K/uL (130-400); RDW Standard Deviation 41.2 fL (36.4-46.3); Red Blood Count 4.73 M/uL (4.70-6.10); White Blood Count 13.14 K/ul (4.8-10.8)
[2023-01-26] MEDS: hydrOXYzine HCl 25 MG TAB PO SCH ×3 (08:14→20:57)
[2023-01-26] MEDS: LORazepam 1 MG TAB PO SCH (08:14)
[2023-01-26 08:20] LABS: BUN Creatinine Ratio 14.5 (10-20); Calcium 8.2 mg/dl (8.6-10.3); Creatinine Clr Calc Pharmacy 111.3 ml/min; Est GFR (African American) 116.3 ml/min; Est GFR (Non-African American) 100.3 ml/min; Potassium 3.7 mmol/L (3.5-5.1)
--- NOTE | 2023-01-26 12:30 | Pulmonology Progress Note ---
Date of Service January 26, 2023 Assessment & Plan (1) Shortness of breath: (2) Pleural effusion on left: (3) Mass of left lung: (4) Posterior mediastinal lymphadenopathy: Plan 62-year-old male with a past medical history of mastocytosis and tobacco abuse presenting to the ER due to severe shortness of breath. Patient found to have massive left pleural effusion with possible underlying mass. Pigtail catheter removed 01/25/2023. Roughly 2.5 L of fluid was removed. Init ial pleural fluid analysis was negative for malignancy, but consistent with exudate. Second sample sent over the weekend and is pending. Patient will likely need a tissue sample from the mass and lymph nodes for definitive diagnosis of likely lung cancer. Will have one of my colleagues evaluate next week for possible EBUS. I ordered an echocardiogram to evaluate the small pericardial effusion noted on CT chest. Effusion was noted to be trace on echo. Appreciate oncology input. High likelihood that the pleural fluid will recur if it is indeed malignant. May need Pleurx catheter in the near future. Patient will be made n.p.o. over midnight. Please hold any pharmacological DVT prophylaxis. Thank you for allowing me to participate in the care of the patient. Will continue to follow. Admission and Anticipated Discharge Date Admission Date: January 23, 2023 Subjective Patient seen and examined. Shortness of breath improved compared to yesterday. Minimal cough. No fevers, chills or night sweats. Endorses some anxiety. Review of Systems Review of Systems: All systems reviewed & are unremarkable except as noted in HPI & below Physical Exam Physical Exam: Constitutional: Patient appears to be of their stated age. Patient is in no apparent distress. Patient is well-developed. Eyes: Pupils are equal round and reactive to light. Conjunctivae are normal. Anicteric sclera. Ears nose, mouth and throat: Mallampati class 2. Normal posterior oropharynx. Uvula is midline. Neck: Trachea is midline. Visual inspection is normal. Respiratory: Diminished lung sounds on the left. Mild crackles. Mildly increased work of breathing. Cardiovascular: Regular rate and rhythm. No murmurs. No edema. Gastrointestinal: Normal bowel sounds, soft, nontender and nondistended. No hepatosplenomegaly noted. Musculoskeletal: No cyanosis. Patient is able to move all extremities. Stren gth is 5 out of 5 in the upper and lower extremities. Skin: No rashes, warm dry and intact. Neurologic: No obvious focal neurological deficits seen. Psychiatric: Alert and oriented x3 with a euthymic affect. Results & Data Results & Data Vital Signs (Past 12 Hours) Vital Signs Temp Pulse Pulse Resp BP Pulse Ox O2 Del Method 01/26/23 12:19 37.0 C 82 18 115/77 96 Nasal Cannula 01/26/23 08:00 Room Air 01/26/23 08:00 85 01/26/23 07:47 36.8 C 94 H 18 115/80 92 Nasal Cannula 01/26/23 03:08 36.6 C 85 18 113/78 95 Nasal Cannula O2 Flow Rate 01/26/23 12:19 2 01/26/23 08:00 01/26/23 08:00 01/26/23 07:47 2 01/26/23 03:08 2 PG Care Time/CCT Total # of Minutes Spent Total Time Spent with Patient: Total time spent is greater than 50% in coordination of care (as documented) at patient's floor/unit and/or counseling patient: Coding Level of Care Code 09543 SUB INP/OBS CARE 2/35MIN Diagnoses Shortness of breath R06.02 Pleural effusion on left J90 Mass of left lung R91.8 Posterior mediastinal lymphadenopathy R59.0
[2023-01-26] MEDS: DOCUSATE SODIUM 100 MG CAP PO SCH ×2 (13:03→20:58)
--- NOTE | 2023-01-26 17:22 | Hospitalist Progress Note ---
Date of Service January 26, 2023 Assessment & Plan (1) Pleural effusion on left: Plan: Large exudative left pleural effusion possibly malignant, status post chest tube placement, feeling better, currently patient not hypoxic, patient is on room air Left pleural effusion. N mediastinal lymphadenopathy is noted. 3 mm right lower lobe nodule, 6 mm right lower lobe nodule. 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 Patient reports he did have a bone marrow biopsy which confirmed systemic mastocytosis - Was placed on Midostaurin x3 weeks last dose was 6 weeks ago do to getting sick, nauseus, feeling poor. Was not recommended for any other immunotherapy. No acute change in management at time of admission Plan Pharmacoprophylaxis held pending Christopher noel. Lovenox 40mg SQ daily after. CODE STATUS: DNR/DNI Admission and Anticipated Discharge Date Admission Date: January 23, 2023 Subjective Patient seen and examined. Shortness of breath improved compared to yesterday. Physical Exam Physical Exam: Constitutional: Patient appears to be of their stated age. Patient is in no apparent distress. Patient is well-developed. Eyes: Pupils are equal round and reactive to light. Conjunctivae are normal. Anicteric sclera. Ears nose, mouth and throat: Mallampati class 2. Normal posterior oropharynx. Uvula is midline. Neck: Trachea is midline. Visual inspection is normal. Respiratory: Diminished lung sounds on the left. Mild crackles. Mildly increa sed work of breathing. Cardiovascular: Regular rate and rhythm. No murmurs. No edema. Gastrointestinal: Normal bowel sounds, soft, nontender and nondistended. No hepatosplenomegaly noted. Musculoskeletal: No cyanosis. Patient is able to move all extremities. Strength is 5 out of 5 in the upper and lower extremities. Skin: No rashes, warm dry and intact. Neurologic: No obvious focal neurological deficits seen. Psychiatric: Alert and oriented x3 with a euthymic affect. Results & Data Results & Data Vital Signs (Past 12 Hours) Vital Signs Temp Pulse Pulse Resp BP Pulse Ox O2 Del Method 01/26/23 16:13 36.7 C 93 H 16 110/75 94 Nasal Cannula 01/26/23 12:19 37.0 C 82 18 115/77 96 Nasal Cannula 01/26/23 08:00 Room Air 01/26/23 08:00 85 01/26/23 07:47 36.8 C 94 H 18 115/80 92 Nasal Cannula O2 Flow Rate 01/26/23 16:13 01/26/23 12:19 2 01/26/23 08:00 01/26/23 08:00 01/26/23 07:47 2 PG Care Time/CCT Total # of Minutes Spent Total Time Spent with Patient: Total time spent is greater than 50% in coordination of care (as documented) at patient's floor/unit and/or counseling patient: Coding Level of Care Code 72822 SUB INP/OBS CARE 2/35MIN Diagnoses Pleural effusion on left J90 Mass of left lung R91.8 Systemic mastocytosis D47.02
[2023-01-26] MEDS: ACETAMINOPHEN 325 MG TAB PO PRN (20:56)
--- NOTE | 2023-01-27 07:51 | XRay Report ---
XR chest 1V portable CLINICAL HISTORY: Chest tube COMPARISON STUDY: Chest CT February 04, 2023. Chest radiograph January 26, 2023. FINDINGS: The left pleural catheter was previously removed. There is no pneumothorax. Small left pleu ral effusion is unchanged. Extensive left lung opacification is again noted. There has been no signif icant change in appearance of the chest. Cardiomediastinal silhouette is stable. Pulmonary vascular c ongestion. IMPRESSION: 1. No significant change in extensive opacification of the left lung. Suspected underlying mass is de picted on chest CT of January 25, 2023. 2. Small left pleural effusion. No pneumothorax. 3. Pulmonary vascular congestion. ACT 112: Negative or not required by law. Electronically signed by: Jhonatan Cristina M.D. 01/27/2023 7:48 AM
--- NOTE | 2023-01-27 08:11 | Pulmonology Progress Note ---
Date of Service January 27, 2023 Assessment & Plan (1) Shortness of breath: (2) Pleural effusion on left: (3) Mass of left lung: (4) Posterior mediastinal lymphadenopathy: Plan Impression: 62-year-old male with a past medical history of mastocytosis and tobacco abuse presenting to the ER due to severe shortness of breath. Patient found to have massive left pleural effusion with possible underlying mass. He is status post thoracentesis with initial cytology negative. Recommendations: 1. Abnormal CT scan: Patient appears to have cut off of the left lower lobe bronchus on CT scan with surrounding soft tissue mass/adenopathy. He is NPO. Will plan on proceeding with fiberoptic bronchoscopy with inspection of the airways as well as endobronchial ultrasound with transbronchial needle aspiration this morning. Patient should be able to eat 2 hours postprocedure. 2. Pleural effusion: Await second cytology. Depending on pathology if the fluid reaccumulate's, consideration for a tunneled pleural catheter might be appropriate however will need to ensure that the lung can actually expand and there is not an endobronchial lesion present. X-ray today does not look significantly different from the x-ray when the tube was pulled so I think most of the opacity identified likely represents atelectatic lung as opposed to reaccumulation of pleural fluid. 3. Additional recommendations will be based on pathology specimens. 4. Hypoxemia: Continue supplemental oxygen titrated to keep saturations at or above 90%. 5. Depending on pathology, additional imaging studies including outpatient PET scan as well as MRI of the brain with and without contrast may be appropriate. The above recommendations and plan were extensively discussed with the patient. Questions were answered to the best my ability. He expressed understanding and is in agreement to undergo the above-noted procedure. Admission and Anticipated Discharge Date Admission Date: January 23, 2023 Subjective Patient seen and examined. EMR reviewed. 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 Patient states that he is doing relatively well. He is not experiencing any chest pain or palpitations. He has a dry nonproductive cough. He has not had any significant sputum production. No hemoptysis. He denies fevers chills or night sweats. He is n.p.o. this morning for potential procedure. Review of Systems Review of Systems: All systems reviewed & are unremarkable except as noted in Subjective Physical Exam Constitutional: WD/WN, vitals as above Neck: trachea midline, no thyromegaly Respiratory: normal respiratory effort, lungs clear to auscultation Cardiovascular: RRR, no murmur, no edema Gastrointestinal (Abdomen): normal bowel sounds, soft, nontender, no hepatosplenomegaly Musculoskeletal: Extremities: extremities normal to inspection Skin: no rashes, warm and dry Neurologic: Nonfocal exam Lymphatic: no cervical lymphadenopathy Results & Data Results & Data Vital Signs (Past 12 Hours) Vital Signs Temp Pulse Pulse Resp BP Pulse Ox O2 Del Method 01/27/23 07:52 91 H 01/27/23 07:31 36.2 C L 92 H 18 118/78 95 Room Air 01/27/23 02:42 36.4 C L 86 18 116/80 96 Nasal Cannula 01/26/23 22:56 36.6 C 90 18 108/77 92 Room Air 01/26/23 22:00 92 H 01/26/23 20:56 Nasal Cannula O2 Flow Rate 01/27/23 07:52 01/27/23 07:31 01/27/23 02:42 2 01/26/23 22:56 01/26/23 22:00 01/26/23 20:56 2 Critical Care Results & Data Vital Signs (Past 12 Hours) Vital Signs Temp Pulse Pulse Resp BP Pulse Ox O2 Del Method 01/27/23 07:52 91 H 01/27/23 07:31 36.2 C L 92 H 18 118/78 95 Room Air 01/27/23 02:42 36.4 C L 86 18 116/80 96 Nasal Cannula 01/26/23 22:56 36.6 C 90 18 108/77 92 Room Air 01/26/23 22:00 92 H 01/26/23 20:56 Nasal Cannula O2 Flow Rate 01/27/23 07:52 01/27/23 07:31 01/27/23 02:42 2 01/26/23 22:56 01/26/23 22:00 01/26/23 20:56 2 Lab & Micro Results (Past 24 Hours) No Data to Display No Data to Display No Data to Display Microbiology 01/23/23 16:00 Gram Stain - Final Pleural Fluid Aerobic and Anaerobic Culture - Preliminary No growth to date. Diagnostic Findings (Past 24 Hours) Chest X-Ray 01/27/23 07:00 XR chest 1V portable CLINICAL HISTORY: Chest tube COMPARISON STUDY: Chest CT February 04, 2023. Chest radiograph January 26, 2023. FINDINGS: The left pleural catheter was previously removed. There is no pneumothorax. Small left pleural effusion is unchanged. Extensive left lung opacification is again noted. There has been no significant change in appearance of the chest. Cardiomediastinal silhouette is stable. Pulmonary vascular congestion. IMPRESSION: 1. No significant change in extensive opacification of the left lung. Suspected underlying mass is depicted on chest CT of January 25, 2023. 2. Small left pleural effusion. No pneumothorax. 3. Pulmonary vascular congestion. ACT 112: Negative or not required by law. Electronically signed by: Jhonatan Cristina M.D. 01/27/2023 7:48 AM I & O Totals 24 Hours 01/26/23 01/27/23 01/28/23 06:59 06:59 06:59 Intake Total 690 / 690 510 / 510 Output Total 1050 / 1050 325 / 325 Balance -360 / -360 185 / 185 Cumulative 01/23/23 09:52 thru 01/27/23 05:50 Intake Total 5864.50 Output Total 4540 Balance 1324.50 RT Ventilator Mngmt (Last Documented) Ventilator Ordered Settings Respiratory Rate 18 01/27/23 07:31 Ventilator - PT Measurements Respiratory Rate 18 PG Care Time/CCT Total # of Minutes Spent Total Time Spent with Patient: Total time spent is greater than 50% in coordination of care (as documented) at patient's floor/unit and/or counseling patient: Coding Level of Care Code 56656 SUB INP/OBS CARE 2/35MIN Diagnoses Shortness of breath R06.02 Pleural effusion on left J90 Mass of left lung R91.8 Posterior mediastinal lymphadenopathy R59.0
[2023-01-27] MEDS ORDERED: fentaNYL citrate PF 100 MCG/2 ML VIAL ONE (08:32)
[2023-01-27] MEDS ORDERED: MIDAZOLAM HCL 5 MG/ML 1 ML VIAL ONE ×2 (08:32→09:36)
[2023-01-27] MEDS ORDERED: ERGOCALCIFEROL 50,000 UNITS 1250 MCG CAP PO SCH (09:00)
--- NOTE | 2023-01-27 09:38 | Pre Anesthesia Assessment ---
Date of Service January 27, 2023 Pre Sedation Assessment Vital Signs Temp Pulse Pulse Resp BP Pulse Ox O2 Del Method 01/27/23 09:30 114 H 16 114/86 94 Oxymask 01/27/23 09:25 97 H 16 111/83 96 Oxymask 01/27/23 09:20 96 H 16 97/65 L 95 Oxymask 01/27/23 09:15 97 H 16 93/69 L 96 Oxymask 01/27/23 09:10 96 H 16 112/87 94 Oxymask 01/27/23 09:05 96 H 16 130/83 93 Oxymask 01/27/23 09:00 92 H 16 103/78 98 Oxymask 01/27/23 08:55 95 H 16 110/72 98 Nebulizer 01/27/23 08:50 97 H 16 124/84 98 Nebulizer 01/27/23 08:44 100 H 16 121/82 95 Nasal Cannula 01/27/23 07:52 91 H 01/27/23 07:31 36.2 C L 92 H 18 118/78 95 Room Air 01/27/23 02:42 36.4 C L 86 18 116/80 96 Nasal Cannula 01/26/23 22:56 36.6 C 90 18 108/77 92 Room Air 01/26/23 22:00 92 H 01/26/23 20:56 Nasal Cannula 01/26/23 19:57 37.1 C 85 18 155/84 H 91 Nasal Cannula 01/26/23 16:13 36.7 C 93 H 16 110/75 94 Nasal Cannula 01/26/23 12:19 37.0 C 82 18 115/77 96 Nasal Cannula O2 Flow Rate 01/27/23 09:30 10 01/27/23 09:25 10 01/27/23 09:20 10 01/27/23 09:15 10 01/27/23 09:10 10 01/27/23 09:05 10 01/27/23 09:00 10 01/27/23 08:55 01/27/23 08:50 01/27/23 08:44 2 01/27/23 07:52 01/27/23 07:31 01/27/23 02:42 2 01/26/23 22:56 01/26/23 22:00 01/26/23 20:56 2 01/26/23 19:57 2 01/26/23 16:13 01/26/23 12:19 2 Pre-Sedation Airway Assessment Smoking Status: Former smoker Hx Sleep Apnea: No Short, Thick Neck: No Thyromental Distance: > or= 3.5 Finger Breadths Oral Cavity: + Dentures Mallampati Class: III ASA: ASA4 NPO Status Date of Last Intake of Fluids: 01/26/23 Date of Last Intake of Solid Food: 01/26/23 Notes The planned sedation has been discussed with the patient. Informed Consent was obtained. I have identified the patient, determined the appropriateness of sedation and have assessed the patient immediately prior to the procedure. All medicine(s) and interventions are by my order.
--- NOTE | 2023-01-27 09:44 | Procedure Note ---
Procedure Note: Bronchoscopy Procedure Procedure: Fiberoptic bronchoscopy Endobronchial ultrasound evaluation during bronchoscopy Endobronchial ultrasound with transbronchial needle aspiration of lymph nodes, single station Endobronchial biopsy without fluoroscopic guidance Conscious sedation Provider: Poncho Oates MD Consent: Signed by patient and timeout verified prior to procedure. Sedation start: 902 Sedation end: 932 Conscious sedation: 125 mcg fentanyl, 5 mg Versed, topical lidocaine per RT protocol Estimated blood loss: 5 mL Indication: Abnormal CT scan Procedure: Patient was brought to the bronchoscopy suite. Consent was verified. Appropriate radiographic studies had been reviewed prior to the procedure. St andard monitoring was applied. Oxygen was administered. After topical anesthesia of the airways per respiratory therapy protocol, the fiberoptic scope was advanced through the oropharynx. Oropharynx was unremarkable. Vocal cords were visualized and were normal in function and appearance. Topical anesthesia of the cords was achieved with instillation of lidocaine through the scope. Scope was then passed through the vocal cords. The trachea was midline. Main sara was sharp. Anesthesia of the lower airways was achieved with instillation of lidocaine through the scope. A sequential and systematic examination of the lower airways was conducted. The right-sided airways were normal in anatomic configuration and the mucosa appeared normal. Left-sided airways were then examined. 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 See attached photos. I was unable to pass the scope into the left lower lobe and close it was exceedingly friable and bled with any manipulation. The fiberoptic scope was then removed and the endobronchial ultrasound advanced through the oropharynx. The scope was directed to the level 7 lymph node station. Adenopathy was identified within the station and under direct ultr asound visualization using a 21-gauge needle, a total of 6 passes were taken. Rapid onsite cytologic evaluation confirmed malignancy on the first pass. Remaining passes were placed in wash for cell block. Hemostasis was adequate. The endobronchial ultrasound was removed. The fiberoptic scope was then readvanced through the oropharynx via the bite- block. It was directed down to the site of the EBUS TBNA. We attempted to pass microforceps into that area however forceps would not easily passed through the holes made by the EBUS TBNA needle. The scope was then directed to the left mainstem and 1 biopsy with the microforceps was taken. This resulted in significant bleeding which was controlled with instillation of about 150 cc of chilled saline and topical epinephrine. Hemostasis was then confirmed. The bronchoscope was then removed from the airways. The patient tolerated the procedure well without obvious complication. Patient was returned to the recovery room. Impression: 1. Abnormal inspection bronchoscopy with tumor in the left lower lobe bronchus occluding the left lower lobe. 2. Pathologic adenopathy with the level 7 station status post TBNA. Await final pathology. [facility] Procedure Codes (Charges) Pulmonary/Thoracic Procedure 1: Pulmonary and Thoracic: 88952 Bronchoscopy, w/EBUS 1 or 2 mediastinal Procedure 2: Pulmonary and Thoracic: 45943 Bronchoscopy w bronchial or endobronchial bx Sedation/Anesthesia Procedure 3: Sedation/Anesthesia: 97949 Mod Sedation by the same physician;Init15 Min Child Age 5 & Up Total Sedation Time (minutes): 40 Procedure 4: Sedation/Anesthesia: 61133 Mod Sedation by the same physician; Ea [id number] Minutes
--- NOTE | 2023-01-27 09:45 | Post Anesthesia Assessment ---
Date of Service January 27, 2023 Post Sedation Assessment Vital Signs Temp Pulse Pulse Resp BP Pulse Ox O2 Del Method 01/27/23 09:30 114 H 16 114/86 94 Oxymask 01/27/23 09:25 97 H 16 111/83 96 Oxymask 01/27/23 09:20 96 H 16 97/65 L 95 Oxymask 01/27/23 09:15 97 H 16 93/69 L 96 Oxymask 01/27/23 09:10 96 H 16 112/87 94 Oxymask 01/27/23 09:05 96 H 16 130/83 93 Oxymask 01/27/23 09:00 92 H 16 103/78 98 Oxymask 01/27/23 08:55 95 H 16 110/72 98 Nebulizer 01/27/23 08:50 97 H 16 124/84 98 Nebulizer 01/27/23 08:44 100 H 16 121/82 95 Nasal Cannula 01/27/23 07:52 91 H 01/27/23 07:31 36.2 C L 92 H 18 118/78 95 Room Air 01/27/23 02:42 36.4 C L 86 18 116/80 96 Nasal Cannula 01/26/23 22:56 36.6 C 90 18 108/77 92 Room Air 01/26/23 22:00 92 H 01/26/23 20:56 Nasal Cannula 01/26/23 19:57 37.1 C 85 18 155/84 H 91 Nasal Cannula 01/26/23 16:13 36.7 C 93 H 16 110/75 94 Nasal Cannula 01/26/23 12:19 37.0 C 82 18 115/77 96 Nasal Cannula O2 Flow Rate 01/27/23 09:30 10 01/27/23 09:25 10 01/27/23 09:20 10 01/27/23 09:15 10 01/27/23 09:10 10 01/27/23 09:05 10 01/27/23 09:00 10 01/27/23 08:55 01/27/23 08:50 01/27/23 08:44 2 01/27/23 07:52 01/27/23 07:31 01/27/23 02:42 2 01/26/23 22:56 01/26/23 22:00 01/26/23 20:56 2 01/26/23 19:57 2 01/26/23 16:13 01/26/23 12:19 2 Discharge Sedation Level of Care: Fast Track Phase II Post Sedation Plan On clinical assessment, the patient appears to have tolerated the sedation without complications. Patient is recovering as anticipated. Patient will continue to be monitored by nursing and may be discharged when sedation discharge criteria are met per below protocol. Upon Completions of procedure up to 15 minutes continue every 5 minute vital signs and the P.A.R. score; then discharge to a Phase I or Fast Track to Phase II per the following guidelines: * Discharge Patient to appropriate Phase II area if PAR is 8 or greater or return to pre- procedure baseline. The post - procedure orders will be as directed. * If PAR score is less than 8 or not return to pre-procedure baseline then patient will follow Phase I monitoring till PAR is reached for Phase II. The Phase I may be done in procedure room or may call to secure a Phase I area. * If naloxone or flumazenil are used for reversal, hold in Phase I for continued monitoring from when last reversal dose was given for a minimum of 60 minutes or longer pending the nurse and/or physician discretion of patient condition before discharge to Phase II. Please call the Sedation Physician to re-evaluate and complete post-note for discharge to Phase II area. Do NOT discharge from procedure sedation or Phase 1 until post- sedation evaluation note is complete by procedure /sedation MD Sedation Discharge Instructions to be given to the patient at discharge to home.
[2023-01-27] MEDS: DOCUSATE SODIUM 100 MG CAP PO SCH ×2 (12:00→21:01)
[2023-01-27] MEDS: hydrOXYzine HCl 25 MG TAB PO SCH ×3 (12:01→21:01)
[2023-01-27] MEDS: LORazepam 1 MG TAB PO SCH (12:06)
[2023-01-27] MEDS ORDERED: GADOBUTROL 65ML VIAL IV ONE (17:23)
--- NOTE | 2023-01-27 17:55 | Hospitalist Progress Note ---
Date of Service January 27, 2023 Assessment & Plan (1) Pleural effusion on left: Plan: Large exudative left pleural effusion possibly malignant, status post chest tube placement, feeling better, currently patient not hypoxic, patient is on room air Left pleural effusion. N mediastinal lymphadenopathy is noted. 3 mm right lower lobe nodule, 6 mm right lower lobe nodule. 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 Patient reports he did have a bone marrow biopsy which confirmed systemic mastocytosis - Was placed on Midostaurin x3 weeks last dose was 6 weeks ago do to getting sick, nauseus, feeling poor. Was not recommended for any other immunotherapy. No acute change in management at time of admission Plan Pharmacoprophylaxis held pending Christopher noel. Lovenox 40mg SQ daily after. CODE STATUS: DNR/DNI Admission and Anticipated Discharge Date Admission Date: January 23, 2023 Physical Exam Physical Exam: Constitutional: Patient appears to be of their stated age. Patient is in no apparent distress. Patient is well-developed. Eyes: Pupils are equal round and reactive to light. Conjunctivae are normal. Anicteric sclera. Ears nose, mouth and throat: Mallampati class 2. Normal posterior oropharynx. Uvula is midline. Neck: Trachea is midline. Visual inspection is normal. Respiratory: Diminished lung sounds on the left. Mild crackles. Mildly increased work of breathing. Cardiovascular: Regular rate and rhythm. No murmurs. No edema. Gastrointestinal: Normal bowel sounds, soft, nontender and nondistended. No hepatosplenomegaly noted. Musculoskeletal: No cyanosis. Patient is able to move all extremities. Strength is 5 out of 5 in the upper and lower extremities. Skin: No rashes, warm dry and intact. Neurologic: No obvious focal neurological deficits seen. Psychiatric: Alert and oriented x3 with a euthymic affect. Constitutional: WD/WN, vitals as above ENMT: Mallampati Class: III Neck: trachea midline, no thyromegaly Respiratory: normal respiratory effort, lungs clear to auscultation Cardiovascular: RRR, no murmur, no edema Gastrointestinal (Abdomen): normal bowel sounds, soft, nontender, no hepatosplenomegaly Musculoskeletal: Extremities: extremities normal to inspection Skin: no rashes, warm and dry Lymphatic: no cervical lymphadenopathy Results & Data Results & Data Vital Signs (Past 12 Hours) Vital Signs Temp Pulse Pulse Resp BP BP Pulse Ox 01/27/23 16:26 111 H 01/27/23 15:18 37.0 C 110 H 18 124/82 93 01/27/23 12:01 36.7 C 108 H 18 101/69 94 01/27/23 10:08 119 H 24 118/79 90 01/27/23 10:00 01/27/23 09:50 120 H 16 136/90 90 01/27/23 09:35 120 H 16 101/56 L 90 01/27/23 09:30 114 H 16 114/86 94 01/27/23 09:25 97 H 16 111/83 96 01/27/23 09:20 96 H 16 97/65 L 95 01/27/23 09:15 97 H 16 93/69 L 96 01/27/23 09:10 96 H 16 112/87 94 01/27/23 09:05 96 H 16 130/83 93 01/27/23 09:00 92 H 16 103/78 98 01/27/23 08:55 95 H 16 110/72 98 01/27/23 08:50 97 H 16 124/84 98 01/27/23 08:44 100 H 16 121/82 95 01/27/23 08:00 01/27/23 07:52 91 H 01/27/23 07:31 36.2 C L 92 H 18 118/78 95 O2 Del Method O2 Flow Rate 01/27/23 16:26 01/27/23 15:18 Nasal Cannula 2 01/27/23 12:01 Nasal Cannula 6 01/27/23 10:08 Nasal Cannula 6 01/27/23 10:00 Nasal Cannula 6 01/27/23 09:50 Oxymask 4 01/27/23 09:35 Oxymask 4 01/27/23 09:30 Oxymask 10 01/27/23 09:25 Oxymask 10 01/27/23 09:20 Oxymask 10 01/27/23 09:15 Oxymask 10 01/27/23 09:10 Oxymask 10 01/27/23 09:05 Oxymask 10 01/27/23 09:00 Oxymask 10 01/27/23 08:55 Nebulizer 01/27/23 08:50 Nebulizer 01/27/23 08:44 Nasal Cannula 2 01/27/23 08:00 Oxymask 01/27/23 07:52 01/27/23 07:31 Room Air PG Care Time/CCT Total # of Minutes Spent Total Time Spent with Patient: Total time spent is greater than 50% in coordination of care (as documented) at patient's floor/unit and/or counseling patient: Coding Diagnoses Pleural effusion on left J90 Mass of left lung R91.8 Systemic mastocytosis D47.02
--- NOTE | 2023-01-27 18:20 | Hospitalist Progress Note ---
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, patient will go for EBUS on Friday discussed with pulmonary medicine, I will contact the detention at [phone] extension [phone] and I also informed the nurse practitioner who is in charge of the detention status post embolus and lung biopsy, discussed with pulmonary,, patient can be discharged today, follow outpatient with pulmonary/oncology - MRI of the brain ordered by pulmonary, I will proceed with chest x-ray Suspect malignant effusion, most likely the patient leukocytosis due to malignancy, stopped IV antibiotic, - I contacted the detention today, they need physician approval for transferring the patient back to detention, patient is currently on 2 L of oxygen hopefully we can wean him off tomorrow (2) Mass of left lung: Plan: Plan as mentioned above (3) Systemic mastocytosis: Plan: Systemic Mastocysosis - Follows with [facility]. Patient reports he did have a bone marrow biopsy which confirmed systemic mastocytosis - Was placed on Midostaurin x3 weeks last dose was 6 weeks ago do to getting sick, nauseus, feeling poor. Was not recommended for any other immunotherapy. No acute change in management at time of admission Plan Pharmacoprophylaxis held pending Christopher noel. Lovenox 40mg SQ daily after. CODE STATUS: DNR/DNI Admission and Anticipated Discharge Date Admission Date: January 23, 2023 Subjective status post lung biopsy today, patient is mildly hypoxic, requiring 2 L of oxygen to keep sats above 90%, discussed with pulmonary and hematology patient can be discharged and follow-up outpatient, hematology recalled the detention to make an a follow-up appointment, MRI of brain pending, patient can be discharged tomorrow, we will proceed with post bronchoscopy x-ray Physical Exam Physical Exam: Constitutional: Patient appears to be of their stated age. Patient is in no apparent distress. Patient is well-developed. Eyes: Pupils are equal round and reactive to light. Conjunctivae are normal. Anicteric sclera. Ears nose, mouth and throat: Mallampati class 2. Normal posterior oropharynx. Uvula is midline. Neck: Trachea is midline. Visual inspection is normal. Respiratory: Diminished lung sounds on the left. Mild crackles. Mildly increased work of breathing. Cardiovascular: Regular rate and rhythm. No murmurs. No edema. Gastrointestinal: Normal bowel sounds, soft, nontender and nondistended. No hepatosplenomegaly noted. Musculoskeletal: No cyanosis. Patient is able to move all extremities. Strength is 5 out of 5 in the upper and lower extremities. Skin: No rashes, warm dry and intact. Neurologic: No obvious focal neurological deficits seen. Psychiatric: Alert and oriented x3 with a euthymic affect. Constitutional: WD/WN, vitals as above ENMT: Mallampati Class: III Neck: trachea midline, no thyromegaly Respiratory: normal respiratory effort, lungs clear to auscultation Cardiovascular: RRR, no murmur, no edema Gastrointestinal (Abdomen): normal bowel sounds, soft, nontender, no hep atosplenomegaly Musculoskeletal: Extremities: extremities normal to inspection Skin: no rashes, warm and dry Lymphatic: no cervical lymphadenopathy Results & Data Results & Data Vital Signs (Past 12 Hours) Vital Signs Temp Pulse Pulse Resp BP BP Pulse Ox 01/27/23 16:26 111 H 01/27/23 15:18 37.0 C 110 H 18 124/82 93 01/27/23 12:01 36.7 C 108 H 18 101/69 94 01/27/23 10:08 119 H 24 118/79 90 01/27/23 10:00 01/27/23 09:50 120 H 16 136/90 90 01/27/23 09:35 120 H 16 101/56 L 90 01/27/23 09:30 114 H 16 114/86 94 01/27/23 09:25 97 H 16 111/83 96 01/27/23 09:20 96 H 16 97/65 L 95 01/27/23 09:15 97 H 16 93/69 L 96 01/27/23 09:10 96 H 16 112/87 94 01/27/23 09:05 96 H 16 130/83 93 01/27/23 09:00 92 H 16 103/78 98 01/27/23 08:55 95 H 16 110/72 98 01/27/23 08:50 97 H 16 124/84 98 01/27/23 08:44 100 H 16 121/82 95 01/27/23 08:00 01/27/23 07:52 91 H 01/27/23 07:31 36.2 C L 92 H 18 118/78 95 O2 Del Method O2 Flow Rate 01/27/23 16:26 01/27/23 15:18 Nasal Cannula 2 01/27/23 12:01 Nasal Cannula 6 01/27/23 10:08 Nasal Cannula 6 01/27/23 10:00 Nasal Cannula 6 01/27/23 09:50 Oxymask 4 01/27/23 09:35 Oxymask 4 01/27/23 09:30 Oxymask 10 01/27/23 09:25 Oxymask 10 01/27/23 09:20 Oxymask 10 01/27/23 09:15 Oxymask 10 01/27/23 09:10 Oxymask 10 01/27/23 09:05 Oxymask 10 01/27/23 09:00 Oxymask 10 01/27/23 08:55 Nebulizer 01/27/23 08:50 Nebulizer 01/27/23 08:44 Nasal Cannula 2 01/27/23 08:00 Oxymask 01/27/23 07:52 01/27/23 07:31 Room Air PG Care Time/CCT Total # of Minutes Spent Total Time Spent with Patient: Total time spent is greater than 50% in coordination of care (as documented) at patient's floor/unit and/or counseling patient: Coding Level of Care Code 75303 SUB INP/OBS CARE 3/50MIN Diagnoses Pleural effusion on left J90 Mass of left lung R91.8 Systemic mastocytosis D47.02
--- NOTE | 2023-01-27 18:20 | Magnetic Resonance Report ---
MRI OF THE BRAIN COMBO CLINICAL HISTORY: Lung cancer. COMPARISON STUDY: No priors. TECHNIQUE: MRI of the brain was performed utilizing various T1 and T2-weighted sequences in the axial , sagittal, and coronal planes. Contrast-enhanced sequences were acquired following the administratio n of 8 cc of Gadavist. FINDINGS: Brain parenchyma: There is age-related involutional change noting mild microangiopathic disease. Ther e is no hemorrhage or mass effect. There is no restricted diffusion to suggest acute ischemia. No enh ancing mass lesion is identified on the postcontrast images. Blackwell-white matter differentiation is pre served. No extra-axial fluid collection is seen. The cerebellar tonsils are normal in configuration. Ventricles, sulci, and cisterns: Prominent secondary to involutional change. Pituitary and sella: Partially empty sella is incidentally noted. Intracranial vasculature: Normal flow voids are maintained at the skull base. Orbits: The bony orbits are grossly intact. Orbital contents are normal in appearance. Sinuses and mastoids: There is trace mucosal thickening within the maxillary antra and the ethmoid si nuses. A 2.2 cm retention cyst is noted in the left maxillary sinus. The mastoid air cells are clear. Calvarium: Unremarkable. Cervical cord: Partially visualized cervical spinal cord is normal in morphology and signal intensity . IMPRESSION: 1. No acute intracranial abnormality. 2. Specifically, there is no MRI evidence of intracranial metastatic disease. ACT 112: Negative or not required by law. Electronically signed by: Erich Brooks M.D. 01/27/2023 6:17 PM
--- NOTE | 2023-01-27 18:58 | XRay Report ---
SINGLE VIEW CHEST CLINICAL HISTORY: Hypoxia. Status post lung biopsy. FINDINGS: An AP, portable, upright chest radiograph is compared to study dated 01/27/2023 and correla radha with chest CT dated 01/25/2023. The examination is degraded by portable technique and patient rota tion. The cardiomediastinal silhouette is obscured and there is likely mild leftward shift of the med iastinum. Emphysema and chronic interstitial thickening is similar to previous. There is a left pleur al effusion and near complete opacification of the left hemithorax. This has increased from today's e arlier examination. No pneumothorax is seen. The skeletal structures are osteopenic. The bony thorax is grossly intact. IMPRESSION: 1. Left pleural effusion with near complete opacification of the left hemithorax. This has increased as compared to today's earlier examination, and may represent progressive atelectasis of the left upp er lung. There is likely mild leftward shift of the mediastinum. 2. The right lung appears clear noting emphysematous change. ACT 112: Negative or not required by law. Electronically signed by: Erich Brooks M.D. 01/27/2023 6:55 PM
[2023-01-27] MEDS: ACETAMINOPHEN 325 MG TAB PO PRN (21:00)
[2023-01-28] MEDS ORDERED: ALENDRONATE SODIUM 70 MG TAB PO SCH (07:00)
--- NOTE | 2023-01-28 07:38 | XRay Report ---
XR chest 1V portable HISTORY: Chest tube COMPARISON: Chest 01/27/2023. FINDINGS: Near complete opacification of the left hemithorax again noted. This remains unchanged. No pneumothorax. Right lung is essentially clear. No acute fractures. IMPRESSION: Near complete opacification of the left hemithorax, unchanged. ACT 112: Negative or not required by law. Electronically signed by: Neo Robledo M.D. 01/28/2023 7:37 AM
[2023-01-28] MEDS: hydrOXYzine HCl 25 MG TAB PO SCH ×2 (07:45→14:56)
[2023-01-28] MEDS: DOCUSATE SODIUM 100 MG CAP PO SCH (07:45)
[2023-01-28] MEDS: LORazepam 1 MG TAB PO SCH (07:45)
--- NOTE | 2023-01-28 10:32 | Discharge Summary ---
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 Feels very short of breath after minimal exertion which limits his ability to ambulate. He has no history of cardiac disease, no history of heart failure, no history of DVT/PE. Denies fever/chills/cough Grabiel reports that he is a long-term inmate who had been generally well until about 1 month ago when he had progressive shortness of breath which has worsened and limited his ability to walk or go up stairs. He reports he has a generally dry cough and had not had a cough prior. He does feel feverish intermittently and has had a feeling of night sweats. He does not feel he has a fever currently. Denies chest pressure/chest pain but does feel some discomfort on deep inspiration into his left chest/back. Reports history of systemic mastocytosis and a family history of breast cancer/cervical cancer/bone cancer/"tumor behind the ear "but does not know if this was a CPA angle tumor just that his father and nephew of the same brain tumor. No diarrhea since stopping immunothearpy. No rectal pain. no abdominal pain Decreased appetite, loss of taste due to immunotherapy. Denies vomiting/ No history of bleeding problems Former smoker, in remission 25 years. Prior 1ppd x25 years. No vape, snuff, chew No etoh No heart history, denies CAD/heart failure/fluid retention/angina Pt reports family history of breast cancer, cervical cancer and some type of cancer in her bones, at age 57. Father at age 68 from a 'tumor behind his ear.' NKDA DNR/DNI. Confirmed with patient at bedside. Admission Exam Per Admitting Provider General: A&Ox3. NAD. Cooperative. HEENT: Atraumatic, normocephalic. Pulm: Minimal reading breath sounds in left lung. Right lung clear without wheezing. symmetrical chest rise. No increased work of breathing. No respiratory distress. Cardiac: RRR, -mrg. Radial pulses intact and symmetrical. Abdominal: Nontender, nondistended, soft. BS present. Principal Diagnosis left-sided pleural effusion status post chest tube placement and removal. Suspect malignant pleural effusion. Left lung mass, status post biopsy, results pending Discharge Exam General: Awake, conversant Heart: S1, S2/regular rate and rhythm, no murmur rubs or gallops Lungs: diminished breath sounds in the left side. Clear to auscultation on the right lung. Normal effort Abdomen: Soft/nontender/nondistended. No hepatosplenomegaly Extremities: No clubbing/cyanosis. No edema Behavior: Appropriate, cooperative Discharge Data Allergies Allergy/AdvReac Type Severity Reaction Status Date / Time No Known Allergies Allergy Unverified 01/23/23 13:41 Consultations 01/23/23 13:26 ED Decision to Admit Stat 01/23/23 14:21 Consult Pulmonology Stat 01/25/23 12:50 Consult Oncology Routine Procedures Performed Operation Date: 01/27/23 09:00 Actual Procedures p Endobronchial Ultrasound (EBUS) - Poncho Oates MD Ordered Studies 01/23/23 11:17 CT for pulmonary embolism PE [CT angio chest PE protocol] Stat 01/23/23 14:58 US point of care ultrasound Urgent 01/25/23 11:17 CT chest diagnostic wo con Urgent 01/27/23 15:33 MRI Brain [MR brain wo/w con] Routine Hospital Course (1) Pleural effusion on left: Large exudative left pleural effusion possibly malignant, status post chest tube placement, chest tube was removed on 01/25. Feeling better Not hypoxic today but may be needing oxygen on an as-needed basis Follow-up CT of the chest after removal of chest tube showed left lower lobe infiltrative mass encasing the left main bronchus with invasion into the left main bronchus. Patient underwent biopsy. Results pending. I suspect malignant pleural effusion (2) Mass of left lung: Please see above Patient is status postbiopsy done on 01/27, awaiting results Patient will need to be seen by pulmonology and oncology in near future once the biopsy results are available. This was communicated verbally with Dr. Iverson at [facility] (3) Systemic mastocytosis: - Follows with [facility]. Patient reports he did have a bone marrow biopsy which confirmed systemic mastocytosis - Was placed on Midostaurin x3 weeks last dose was 6 weeks ago do to getting sick, nauseus, feeling poor. Was not recommended for any other immunotherapy. No acute change in management at time of admission Plan plan is for the patient to go back to the present today. The plan was discussed with Dr. Iverson at the retirement. He was informed that the patient will need outpatient referral to oncology and pulmonology. The patient did not require oxygen upon discharge but it may be required on an as-needed basis. Total Time Total Time Spent Total Time Spent (In Minutes): 35 Discharge Plan Discharge Items [facility] Disposition: [facility] Reason For Visit: DYSPNEA, L EFFUSION Discharge Diagnosis: large left sided pleural effusion , lung mass possibly malignancy Activity: Resume your previous activity Lifting: Gradually increase as tolerated Bathing: No limitations Exercise/Sports: Rest today Driving/Machine Use: No limitations Weightbearing: Full weightbearing Non-emergency contact: Oncologist Call non-emergency contact if: you have any medication questions and your symptoms worsen Follow-up/Referrals: Mc May MD [Physician] - James ANAND [Primary Care Provider] - Tima Miner MD [Physician] - Diet: Low Sodium (2gm) Addtl Attending Provider Instructions: Please note that you have large left sided pleural effusion most likely malignant, s/p chest tube insertion , lung mass status post biopsy (results pending). Dr Miner's Office (Oncologist) will call you for follow up when the result is available. You will need follow up chest X-ray in 2-3 weeks for monitor recurrence of pleural effusion and follow with [facility] [employer] Rep Advised to use O2 on an as needed basis Pending Studies at Discharge: Yes Studies:: pathology of lung biopsy Stand-Alone Forms: My [facility] Skilled Items Patient informed of condition?: Yes Discharge Level of Care: Other Communicable Disease: No Discharge Prognosis: Stable Lines: None Urinary Catheter: No Medications and DC Order Prescriptions: Continued ondansetron HCl 4 mg Tablet 4 mg PO QID PRN (Reason: Nausea) alendronate 70 mg Tablet 70 mg PO .WEEKLY Rx Instructions: Take q friday hydroxyzine HCl 50 mg Tablet 100 mg PO TID famotidine 20 mg Tablet 20 mg PO DAILY PRN (Reason: Acid Reflux) ergocalciferol (vitamin D2) [Vitamin D2] 1,250 mcg (50,000 unit) Capsule 1,250 mcg PO MOWEFR Rx Instructions: Stop on 02/02/2023 lorazepam [Ativan] 1 mg Tablet 1 mg PO DAILY Discharge Orders: Discharge Order (Routine); Ordered 01/28/23 Ordered By: Oli Talley Admission Data Admit Date/Time: 01/23/23 14:18 Attending Provider: Oli Talley Admit Provider: Alfonso Pollard Primary Care Provider: James ANAND Other Providers: Alfonso Pollard; Mc May; Erich Lock; Maria Elena Mosqueda; Latoya Calderon; Sean Bravo; Lorena Willson; Tima Miner; Veronica Luu; Natan Vaguhan; David Peng; Clifford Silver; Melissa Quan; TavoP,No Attending Other Interventions: Discharge Summary Assessment (RN) Last Done: 01/28/23 11:55 Coding Level of Care Code 17486 INP/OBS DISCH >30 MIN Diagnoses Pleural effusion on left J90 Mass of left lung R91.8 Systemic mastocytosis D47.02
== END 2023-01-28 15:42 | DRG 181 ==
LOC: ED 09:52 → EDINP 14:18 → SUATTDRO 14:18 → 2S 15:50